=== PATIENT | female | born 1960 | race Caucasian/White ===

== ENCOUNTER 2020-02-13 02:10 | Inpatient (IN) | payer OTHER ==
[2020-02-13] MEDS ORDERED: morphine CARPU-JECT 2 MG/1 ML DISP.SYRIN IVPUSH ONE (02:13)
[2020-02-13] MEDS ORDERED: FAMOTIDINE 20 MG/50 ML IVPB 20 MG/50 ML MG IVPB ONE ×2 (02:13→02:22)
[2020-02-13] MEDS ORDERED: ONDANSETRON 4 MG/2 ML VIAL IVPUSH ONE ×2 (02:13→04:01)
[2020-02-13] MEDS ORDERED: SODIUM CHLORIDE 0.9% 500 ML INFUS.BAG IV ONE (02:18)
--- NOTE | 2020-02-13 02:18 | PDOC ---
Attending Attestation - Resident Resident Name: Anthony Theodore - ED Attending Attestation I have performed the following: I have examined & evaluated the patient, The case was reviewed & discussed with the resident, I agree w/resident's findings & plan - HPI HPI: 02/13/20 02:15 Pt comes with epigastric pain. She states that she had a normal BM and normal food intake today. Ate choizo and pork and ghreasy food. No PSHx other than c-sections, and no Hx of GB disease and no fam hx of GB disease. SHe is not obese. No PMHX Pt has no HTN, no DM, no high cholesterol. She is from [place] and speaks mozambican and she works in a [employer] factory. No ETOH and no drugs - Physicial Exam PE: 02/13/20 02:17 Normal exam Epigas tric pain; no rebound, no guarding no fever no rash normal HEENT heart and lungs normal vitals normal - Medical Decision Making 02/13/20 02:18 Pt will get labs, ekg, imaging studies 02/13/20 02:19 113 systolic right arm 121 systolic left arm 02/13/20 03:42 Pt has pancreatitis; lipase is 17,000+ She will get a CT scan of her abdomen to visualize the pancreas. 02/13/20 05:11 Patient Name: LYLA MENDEZ THIS IS A PRELIMINARY REPORT FROM [facility] DATE OF SERVICE: 2020-02-13 04:35:59 IMAGES: [id number] EXAM: ABDOMEN CT WITH CONTRAST* HISTORY: Pancreatitis COMPARISON: None. FINDINGS: Lung bases are clear. The visualized cardiac chambers are normal size and configuration. The gallbladder is distended and edematous consistent with acute cholecystitis. There is mild central biliary duct dilation. Mild peripancreatic edema consistent with acute pancreatitis. No secondary complications identified. Normal spleen, adrenal glands and kidneys. The stomach and abdominal small and large bowel are normal. There is no aortic aneurysm. There is no significant retroperitoneal lymphadenopathy. The appendix is normal. IMPRESSION: Mild acute pancreatitis without secondary complications. Acute cholecystitis with mild central biliary duct dilation. 02/13/20 05:11 Pt will be admitted Discharge - Discharge Information Problems reviewed: Yes Clinical Impression/Diagnosis: Cholecystitis Abdominal pain Qualifiers: Abdominal location: epigastric Qualified Code(s): R10.13 - Epigastric pain Pancreatitis Qualifiers: Chronicity: acute Pancreatitis type: unspecified pancreatitis type Acute pancreatitis complication: unspecified Qualified Code(s): K85.90 - Acute pancreatitis without necrosis or infection, unspecified Condition: Guarded - Follow up/Referral - Patient Discharge Instructions - Post Discharge Activity
[2020-02-13] MEDS ORDERED: MORPHINE SULFATE 2 MG/ML VIAL ONE ×4 (02:21→18:49)
[2020-02-13 02:25] LABS: BASO % 0.7 % (0-2.0); EOS % 1.6 % (0-4.5); HEMATOCRIT 36.1 % (32.4-45.2); HEMOGLOBIN 12.2 GM/dL (10.7-15.3); LYMPH % 61.1 % (8-40); MCH 30.5 pg (25.7-33.7); MCHC 33.7 g/dl (32.0-36.0); MEAN CELL VOLUME 90.5 fl (80-96); MEAN PLT VOLUME 9.3 fl (7.5-11.1); MONO % 4.5 % (3.8-10.2); NEUT % 32.1 % (42.8-82.8); PLATELET COUNT 252 K/MM3 (134-434); RBC 3.99 M/mm3 (3.60-5.2); RDW 13.1 % (11.6-15.6)
--- NOTE | 2020-02-13 02:34 | PDOC ---
History of Present Illness - General Chief Complaint: Pain Stated Complaint: DIFFICULTY BREATHING,ABDOMINAL PAIN Time Seen by Provider: 02/13/20 02:15 History Source: Patient Exam Limitations: No Limitations - History of Present Illness Initial Comments: 02/13/20 02:31 HPI: 60yo F PMH asthma, presenting with epigastric pain with nausea and vomiting for several hours after waking her from sleep. Patient endorses epigastric pain radiating to the back with associated nausea and 2x NBNB emesis. Patient doesn't drink much water and feels weak from the pain. Denies fevers / chills / chest pain, SOB / diarrhea. Has had pain like this previously but less intense. No aggravating or alleviating factors identified. No known cardiac history. Reported respiratory distress by EMS, patient sating 100% on room air on arrival. Appears sleepy but easily rousable to voice. All: NKDA Past History - Travel History Traveled outside of the country in the last 30 days: No Close contact w/someone who was outside of country & ill: No - Medical History Allergies/Adverse Reactions: Allergies Allergy/AdvReac Type Severity Reaction Status Date / Time No Known Allergies Allergy Verified 02/13/20 02:13 - Psycho-Social/Smoking History Smoking History: Never smoked Information on smoking cessation initiated: No - Substance Abuse Hx (Audit-C & DAST Scrn) How often the patient has a drink containing alcohol: Never Score: In Men: 4 or > Positive; In Women: 3 or > Positive: 0 Screen Result (Pos requires Nsg. Audit-10AR): Negative In the last yr the pt used illegal drug/Rx for NonMed reason: No Score: Yes response is considered Positive: 0 Screen Result (Positive result requires Nsg. DAST-10): Negative Review of Systems - Review of Systems Able to Perform ROS?: Yes Is the patient limited Spanish proficient: No Constitutional: No: Chills, Diaphoresis, Fever HEENTM: No: Nose Pain, Nose Congestion, Throat Pain Respiratory: No: Cough, Shortness of Breath, Wheezing Cardiac (ROS): No: Chest Pain, Edema, Irregular Heart Rate, Lightheadedness, Palpitations, Syncope, Chest Tightness ABD/GI: Yes: Nausea, Poor Fluid Intake, Vomiting. No: Abdominal Distended, Blood Streaked Bowels, Constipated, Diarrhea, Poor Appetite, Abdominal cramping, Tarry Stools : No: Burning, Dysuria, Frequency Musculoskeletal: No: Muscle Pain, Muscle Weakness Integumentary: No: Bruising, Pruritus, Rash Neurological: No: Headache, Numbness, Tingling, Weakness Endocrine: No: Increased Thirst, Increased Urine Hematologic/Lymphatic: No: Anemia, Blood Clots, Easy Bleeding All Other Systems: Reviewed and Negative *Physical Exam - Vital Signs Last Vital Signs Temp Pulse Resp BP Pulse Ox 98.6 F 54 L 20 113/98 100 02/13/20 02:11 02/13/20 02:11 02/13/20 02:11 02/13/20 02:11 02/13/20 02:11 - Physical Exam 02/13/20 03:02 Vitals reviewed, notable for bradycardia to the 50s GEN: Well appearing, appears stated age, NAD, comfortable. AAOx3, intermittently closing eyes and sleeping. HEENT: NCAT, EOMI, PERRL. Sclera anicteric, non-injected. No facial asymmetry. Moist mucous membranes. Normal voice. Trachea midline. CV: RRR, S1/S2, no murmurs / rubs / gallops appreciated. LUNG: CTABL, normal work of breathing. No wheezes, rales, rhonchi. No cough. Speaking full sentences. GI: Soft, NTND, +BS, no guarding, no rebound. No masses. EXTREMITIES: 2+ distal pulses. No clubbing / cyanosis / edema. No gross deformity in any extremity. SKIN: Warm, dry, no rashes appreciated, non-jaundiced. PSYCH: Normal mood and affect. Cooperative and appropriate. NEURO: CN grossly intact. Moving all extremities well. Normal strength and sensation grossly. ED Treatment Course - LABORATORY CBC & Chemistry Diagram: 02/13/20 02:13 02/13/20 02:13 - ADDITIONAL ORDERS Additional order review: 02/13/20 02:13 RBC 3.99 MCV 90.5 MCHC 33.7 RDW 13.1 MPV 9.3 Neutrophils % 32.1 L Lymphocytes % 61.1 H Monocytes % 4.5 Eosinophils % 1.6 Basophils % 0.7 - Medications Given in the ED: ED Medications Discontinued Medications Generic Name Dose Route Start Last Admin Trade Name Freq PRN Reason Stop Dose Admin Morphine Sulfate 2 mg 02/13/20 02:13 02/13/20 02:26 Morphine Injection - IVPUSH 02/13/20 02:14 2 mg ONCE ONE Administration Ondansetron HCl 4 mg 02/13/20 02:13 02/13/20 02:27 Zofran Injection IVPUSH 02/13/20 02:14 4 mg ONCE ONE Administration Sodium Chloride 1,000 ml 02/13/20 02:18 02/13/20 02:27 Normal Saline - IV 02/13/20 02:19 1,000 ml ONCE ONE Administration Medical Decision Making - Medical Decision Making 02/13/20 03:07 60 yo F PMH asthma, presenting with epigastric pain with nausea and vomiting for 1 day. Exam notable for stable vitals with sinus bradycardia, no focal neurologic deficits. DDX: R/o ACS, GERD, pancreatitis, colitis, gastritis, less likely cholelithiasis. - CBC, CMP, Cardiac profile, Mg, Lipase - Pepcid, Zofran, NS, Morphine - EKG, CXR EKG notable for sinus bradycardia without concerning morphologies. 02/13/20 03:43 Elevated lipase, combined with description of front to back pain consistent with diagnosis of pancreatitis - LR ordered - Patient made NPO - CTAP ordered - POCUS demonstrated cholelithiasis with gallbladder distention Dispo: Admit 02/13/20 05:53 Mild acute pancreatitis, acute cholecystitis with CBD dilatation. Discharge - Discharge Information Problems reviewed: Yes Clinical Impression/Diagnosis: Cholecystitis Abdominal pain Qualifiers: Abdominal location: epigastric Qualified Code(s): R10.13 - Epigastric pain Pancreatitis Qualifiers: Chronicity: acute Pancreatitis type: unspecified pancreatitis type Acute pancr eatitis complication: unspecified Qualified Code(s): K85.90 - Acute pancreatitis without necrosis or infection, unspecified Condition: Guarded - Admission Yes - Follow up/Referral - Patient Discharge Instructions - Post Discharge Activity
[2020-02-13 03:22] LABS: ALBUMIN 3.5 g/dl (3.4-5.0); ALK PHOS 80 U/L (45-117); ANION GAP 11 MMOL/L (8-16); BILIRUBIN,TOTAL 0.4 mg/dL (0.2-1); CALCIUM 9.1 mg/dL (8.5-10.1); CHLORIDE 106 mmol/L (98-107); CO2 25 mmol/L (21-32); CREATININE 1.1 mg/dL (0.55-1.3); GLUCOSE,RANDOM 146 mg/dL (74-106); POTASSIUM 3.5 mmol/L (3.5-5.1); SGOT/AST 80 U/L (15-37); SGPT/ALT 54 U/L (13-61); SODIUM 142 mmol/L (136-145); TOT PROT 6.8 g/dl (6.4-8.2)
[2020-02-13 03:40] LABS: LIPASE 17757 U/L (73-393)
[2020-02-13] MEDS ORDERED: LACTATED RINGERS SOLUTION 1,000 ML/1,000 ML INFUS.BAG IV SCH (03:45)
--- NOTE | 2020-02-13 05:33 | PN ---
Teaching Attending Note Name of Resident: Alfa Teague ATTENDING PHYSICIAN STATEMENT I saw and evaluated the patient. I reviewed the resident's note and discussed the case with the resident. I agree with the resident's findings and plan as documented. SUBJECTIVE: Patient is a 60 year old woman with a PMH of Asthma, CVA (2013) and TIAs who pr esents with epigastric pain associated with nausea and vomiting for several hours after waking from sleep. Epigastric pain radiates to the back with associated nausea and two episodes of NBNB emesis. Patient doesn't drink much water and feels weak from the pain. Has had pain like this previously but less intense. No aggravating or alleviating factors identified. No known cardiac history. Reported respiratory distress by EMS, patient sating 100% on room air on arrival. Patient denies chest pain, shortness of breath, headache, palpitations, dizziness, fever, chills, diarrhea, constipation, dysuria, frequency, urgency, melena, hematochezia or hematuria. Denies alcohol, tobacco or illicit drug use. No sick contacts or recent travels. Has family history of DM in her father. OBJECTIVE: Alert Vital Signs Period Temp Pulse Resp BP Sys/Villanueva Pulse Ox Last 24 Hr 98.6 F 54-58 18-20 113-134/72-98 100-100 HEENT: No Jaundice, eye redness or discharge, PERRLA, EOMI. Normocephalic, atraumatic. External ears are normal and hearing is grossly intact. No nasal discharge. Neck: Supple, nontender. No palpable adenopathy or thyromegaly. No JVD Chest: Good effort. Clear to auscultation and percussion. Heart: Regular. No S3, rub or murmur Abdomen: Not distended, soft, epigastric tenderness and no HSM. No rebound or guarding. Normal bowel sounds. Ext: Peripheral pulses intact. No leg edema. Skin: Warm and dry. No petechiae, rash or ecchymosis. Neuro: Alert. Oriented x3. CN 2-12 grossly intact. Sensation grossly intact in all four extremities and DTR are symmetric. Psych: Appropriate mood and affect. Good insight. Current Medications Generic Name Dose Route Start Last Admin Trade Name Freq PRN Reason Stop Dose Admin Lactated Ringer's 1,000 ml in 1,000 mls @ 125 mls/hr 02/13/20 03:45 02/13/20 03:46 Lactated Ringers Solution IV 125 mls/hr ASDIR BOLA Administration Abnormal Lab Results 02/13/20 02/13/20 02:13 02:13 Neutrophils % 32.1 L Neutrophils % (Manual) 33.0 L Lymphocytes % 61.1 H Lymphocytes % (Manual) 62.1 H Monocytes % (Manual) 3 L Nucleated RBC % 2 H BUN 24.0 H Random Glucose 146 H AST 80 H Lipase 26057 H Current Medications Generic Name Dose Route Start Last Admin Trade Name Freq PRN Reason Stop Dose Admin Lactated Ringer's 1,000 ml in 1,000 mls @ 200 mls/hr 02/13/20 06:45 Lactated Ringers Solution IV ASDIR BOLA Ceftriaxone Sodium 1,000 mg/ 50 mls @ 100 mls/hr 02/13/20 06:39 Dextrose IVPB 02/13/20 07:08 ONCE ONE Metronidazole 500 mg in 100 mls @ 100 mls/hr 02/13/20 06:40 Flagyl 500mg Premixed Ivpb - IVPB 02/13/20 07:39 ONCE ONE Insulin Aspart 0 vial 02/13/20 07:00 Novolog Vial Sliding Scale - SQ ACHS BOLA Protocol Morphine Sulfate 2 mg 02/13/20 06:26 Morphine Injection - IVPUSH Q4H PRN PAIN LEVEL 7 - 10 Pantoprazole Sodium 40 mg 02/13/20 10:00 Protonix - PO DAILY BOLA Prochlorperazine Edisylate 10 mg 02/13/20 06:37 Compazine Injection - IVPB Q4H PRN NAUSEA AND/OR VOMITING ASSESSMENT AND PLAN: 1. Pancreatitis/Cholecystitis - CT scan of abdomen with IV contrast shows mild acute pancreatitis without secondary complications and acute cholecystitis with mild central biliary duct dilation. Ultrasound shows cholelithiasis and gall bladder distension. Viral testing for COVID-19 ordered and patient placed on airborne, droplet and contact isolation. ER staff prescribed IV Morphine, LR, Pepcid, Zofran and IV NS for the patient. EKG shows sinus bradycardia at 52/minute and QTc [address]-T wave changes. Initial troponin is negative. Will get lipid profile, HbA1c and MRCP. Will keep patient NPO, implement insulin sliding scale and treat patient with IV LR at 200 ml/hour, IV Morphine, IV Compazine PRN, IV Rocephin and Flagyl and consult GI and Surgery. Will continue comprehensive care for all of patients comorbid conditions including Duoneb PRN for Asthma. 2. DVT prophylaxis - SCD. 3. Advance directives - Full code
[2020-02-13] MEDS ORDERED: MORPHINE SULFATE 2 MG/ML VIAL IVPUSH PRN (06:26)
[2020-02-13] MEDS ORDERED: IBUPROFEN 400 MG TABLET (FP) PO PRN (06:26)
--- NOTE | 2020-02-13 06:26 | HP ---
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 Pt reports symptoms were spontaneous, with no remitting or aggravating factors. She went to sleep after eating a heavy meat based diet. Patient endorses epigastric pain radiating to the back with associated nausea and 2x NBNB emesis. Patient doesn't drink much water and feels weak from the pain. Has been having pain like this previously but less intense. Denies fevers / chills / chest pain, SOB / diarrhea. ER course was notable for: (1) CT a/p: prelim- acute pancreatitis and acute cholecystitis w/ mild ductal dilation (2) bedside US demonstrating similar findings to cat scan (3) Recent Travel: denies PAST MEDICAL HISTORY: asmtha, cva PAST SURGICAL HISTORY: none FHx dad- dm Social History: Smoking: denies Alcohol: denies Drugs: denies Allergies No Known Allergies Allergy (Verified 02/13/20 02:13) HOME MEDICATIONS: REVIEW OF SYSTEMS Denies fevers / chills / chest pain, SOB / diarrhea, melena, hematemesis, numbness or tingling. PHYSICAL EXAMINATION Vital Signs - 24 hr 02/13/20 02/13/20 02:11 03:45 Temperature 98.6 F Pulse Rate 54 L Pulse Rate [ 58 L Apical] Respiratory 20 18 Rate Blood Pressure 113/98 Blood Pressure 134/72 [Left Arm] O2 Sat by Pulse 100 100 Oximetry (%) GENERAL: Awake, alert, and fully oriented, in no acute distress. EYES: Pupils equal, round and reactive to light, extraocular movements intact, sclera anicteric, No lid lag. EARS, NOSE, THROAT: Moist mucous membranes. LUNGS: Breath sounds equal, clear to auscultation bilaterally. No wheezes, and no crackles. HEART: Regular rate and rhythm, normal S1 and S2 without murmur, rub or gallop. ABDOMEN: Soft, tender epigastric and RUQ, not distended, normoactive bowel sound s, +guarding, +rebound, che+ MUSCULOSKELETAL: Normal range of motion at all joints. No bony deformities or tenderness. Midback tenderness LOWER EXTREMITIES: 2+ pulses, warm, well-perfused. No calf tenderness. No peripheral edema. SKIN: Warm, dry, normal turgor, no rashes or lesions noted, normal capillary refill. Laboratory Results - last 24 hr 02/13/20 02/13/20 02:13 02:13 WBC 8.0 RBC 3.99 Hgb 12.2 Hct 36.1 MCV 90.5 MCH 30.5 MCHC 33.7 RDW 13.1 Plt Count 252 MPV 9.3 Absolute Neuts (auto) 2.6 Neutrophils % 32.1 L Neutrophils % (Manual) 33.0 L Band Neutrophils % 0.0 Lymphocytes % 61.1 H Lymphocytes % (Manual) 62.1 H Monocytes % 4.5 Monocytes % (Manual) 3 L Eosinophils % 1.6 Eosinophils % (Manual) 1.0 Basophils % 0.7 Basophils % (Manual) 0.0 Myelocytes % (Man) 1 Promyelocytes % (Man) 0 Blast Cells % (Manual) 0 Nucleated RBC % 2 H Metamyelocytes 0 Sodium 142 Potassium 3.5 Chloride 106 Carbon Dioxide 25 Anion Gap 11 BUN 24.0 H Creatinine 1.1 Est GFR (CKD-EPI)AfAm 63.20 Est GFR (CKD-EPI)NonAf 54.53 Random Glucose 146 H Calcium 9.1 Magnesium 2.0 Total Bilirubin 0.4 AST 80 H ALT 54 Alkaline Phosphatase 80 Creatine Kinase 59 Troponin I < 0.02 Total Protein 6.8 Albumin 3.5 Lipase 69904 H ASSESSMENT/PLAN: 60 yo F PMH asthma, CVA in 2003 w/ right sided residual deficit s/p physical therapy/rehab recovery, multiple TIAs- most recent in 2009, presenting with epigastric pain radiating to the back with nausea and vomiting for several hours is admitted for Acute cholecystitis and acute pancreatitis likely 2/2 to biliary stones #Acute Pancreatitis + Acute Cholecystitis likely 2/[address] a/p: prelim- acute pancreatitis and acute cholecystitis w/ mild ductal dilation bedside US also confirms similar findings lipase in 17,000 Pt with abdominal pain and tenderness but stable Will cont to hydrate with LR at 200 (monitor for LR and rocephin interaction for calcium deposition ) Maintain NPO Started on one dose Flagyll and Rocephin protonix, compazine and morphine for nausea and pain Will order UA, HbA1c Lipid Profile consulted GI for possible MRCP if cbd dilated consulted surgery for possible jarod #asthma newly diagnosed not on meds #CVA hx ASA only no meds #DVT ppx cont scds FEN monitor lytes NPO IVF at 200 Dispo: f/u GI and surgery, cont NPO and LR Visit type - Emergency Visit Emergency Visit: Yes ED Registration Date: 02/13/20 Care time: The patient presented to the Emergency Department on the above date and was hospitalized for further evaluation of their emergent condition. - New Patient This patient is new to me today: Yes Date on this admission: 02/25/20 - Critical Care Critical Care patient: No ATTENDING PHYSICIAN STATEMENT I saw and evaluated the patient. I reviewed the resident's note and discussed the case with the resident. I agree with the resident's findings and plan as documented. SUBJECTIVE: OBJECTIVE: ASSESSMENT AND PLAN:
[2020-02-13] MEDS ORDERED: PROCHLORPERAZINE INJECTION 10 MG/2 ML VIAL IVPB PRN (06:37)
[2020-02-13] MEDS ORDERED: CEFTRIAXONE 1 GM in DEXTROSE 5%-WATER - 50 ML IVPB ONE (06:39)
[2020-02-13] MEDS: LACTATED RINGERS SOLUTION 1,000 ML/1,000 ML INFUS.BAG IV SCH (06:54)
[2020-02-13] MEDS ORDERED: INSULIN SLIDING SCALE (NOVOLOG) 1 VIAL SQ SCH ×2 (07:00→11:00)
[2020-02-13 08:12] LABS: BASO % 0.3 % (0-2.0); EOS % 0.1 % (0-4.5); HEMATOCRIT 35.1 % (32.4-45.2); HEMOGLOBIN 11.6 GM/dL (10.7-15.3); LYMPH % 15.5 % (8-40); MCH 30.1 pg (25.7-33.7); MCHC 33.1 g/dl (32.0-36.0); MEAN CELL VOLUME 90.8 fl (80-96); NEUT % 80.1 % (42.8-82.8); PLATELET COUNT 242 K/MM3 (134-434); RBC 3.86 M/mm3 (3.60-5.2); RDW 13.2 % (11.6-15.6); WHITE BLOOD COUNT 9.5 K/mm3 (4.0-10.0)
[2020-02-13] MEDS ORDERED: cefTRIAXone SODIUM 1 GM VIAL ONE (08:20)
[2020-02-13 08:40] LABS: ALBUMIN 3.3 g/dl (3.4-5.0); BILIRUBIN,TOTAL 0.6 mg/dL (0.2-1); BLOOD UREA NITROGEN 15.9 mg/dL (7-18); CALCIUM 8.4 mg/dL (8.5-10.1); CREATININE 0.8 mg/dL (0.55-1.3); PHOSPHOROUS 3.7 mg/dL (2.5-4.9); POTASSIUM 3.9 mmol/L (3.5-5.1); TOT PROT 6.1 g/dl (6.4-8.2)
[2020-02-13 09:36] LABS: PH,URINE >= 9.0 (5.0-8.0); URINE APPEARANCE CLEAR; URINE BILIRUBIN NEGATIVE (NEGATIVE); URINE COLOR YELLOW; URINE GLUCOSE (UA) NEGATIVE (NEGATIVE); URINE KETONE NEGATIVE (NEGATIVE); URINE LEUK ESTERASE NEGATIVE (NEGATIVE); URINE NITRITE NEGATIVE (NEGATIVE); URINE PROTEIN NEGATIVE (NEGATIVE)
[2020-02-13] MEDS ORDERED: PANTOPRAZOLE 40 MG TABLET PO SCH (10:00)
[2020-02-13] MEDS: INSULIN SLIDING SCALE (NOVOLOG) 1 VIAL SQ SCH ×3 (11:08→22:22)
[2020-02-13] MEDS: MORPHINE SULFATE 2 MG/ML VIAL IVPUSH PRN ×2 (11:28→18:57)
--- NOTE | 2020-02-13 16:05 | PN ---
Physical Exam: 60 yo F PMH asthma, TIAs presenting with epigastric pain radiating to the back with nausea and vomiting for several hours SUBJECTIVE: Patient seen and examined in ED, lying in bed in distress due to pain OBJECTIVE: Vital Signs Period Temp Pulse Resp BP Sys/Villanueva Pulse Ox Last 24 Hr 98.6 F 54-63 18-20 113-134/72-98 99-100 GENERAL: The patient is awake, alert, and fully oriented, in no acute distress. HEAD: Normal with no signs of trauma. EYES: PERRL, extraocular movements intact, sclera anicteric, conjunctiva clear. No ptosis. ENT: Ears normal, nares patent, oropharynx clear without exudates, moist mucous membranes. NECK: Trachea midline, full range of motion, supple. LUNGS: Breath sounds equal, clear to auscultation bilaterally, no wheezes, no crackles, no accessory muscle use. HEART: Regular rate and rhythm, S1, S2 without murmur, rub or gallop. ABDOMEN: Soft, epigastric tenderness w/o rebound, nondistended, normoactive bowel sounds, no guarding, no rebound, no hepatosplenomegaly, no masses. EXTREMITIES: 2+ pulses, warm, well-perfused, no edema. NEUROLOGICAL: Cranial nerves II through XII grossly intact. Normal speech, gait not observed. PSYCH: Normal mood, normal affect. SKIN: Warm, dry, normal turgor, no rashes or lesions noted Laboratory Results - last 24 hr 02/13/20 02/13/20 02/13/20 02:13 02:13 07:30 WBC 8.0 RBC 3.99 Hgb 12.2 Hct 36.1 MCV 90.5 MCH 30.5 MCHC 33.7 RDW 13.1 Plt Count 252 MPV 9.3 Absolute Neuts (auto) 2.6 Neutrophils % 32.1 L Neutrophils % (Manual) 33.0 L Band Neutrophils % 0.0 Lymphocytes % 61.1 H Lymphocytes % (Manual) 62.1 H Monocytes % 4.5 Monocytes % (Manual) 3 L Eosinophils % 1.6 Eosinophils % (Manual) 1.0 Basophils % 0.7 Basophils % (Manual) 0.0 Myelocytes % (Man) 1 Promyelocytes % (Man) 0 Blast Cells % (Manual) 0 Nucleated RBC % 2 H Metamyelocytes 0 Sodium 142 Potassium 3.5 Chloride 106 Carbon Dioxide 25 Anion Gap 11 BUN 24.0 H Creatinine 1.1 Est GFR (CKD-EPI)AfAm 63.20 Est GFR (CKD-EPI)NonAf 54.53 POC Glucometer Random Glucose 146 H Hemoglobin A1c % Calcium 9.1 Phosphorus Magnesium 2.0 Total Bilirubin 0.4 AST 80 H ALT 54 Alkaline Phosphatase 80 Creatine Kinase 59 Troponin I < 0.02 Total Protein 6.8 Albumin 3.5 Triglycerides Cholesterol Total LDL Cholesterol HDL Cholesterol Lipase 13392 H Urine Color Yellow Urine Appearance Clear Urine pH >= 9.0 H Ur Specific [place] 1.033 Urine Protein Negative Urine Glucose (UA) Negative Urine Ketones Negative Urine Blood Negative Urine Nitrite Negative Urine Bilirubin Negative Urine Urobilinogen 1.0 Ur Leukocyte Esterase Negative 02/13/20 02/13/20 02/13/20 07:52 07:52 07:52 WBC 9.5 RBC 3.86 Hgb 11.6 Hct 35.1 MCV 90.8 MCH 30.1 MCHC 33.1 RDW 13.2 Plt Count 242 MPV 9.0 Absolute Neuts (auto) 7.6 Neutrophils % 80.1 D Neutrophils % (Manual) Band Neutrophils % Lymphocytes % 15.5 D Lymphocytes % (Manual) Monocytes % 4.0 Monocytes % (Manual) Eosinophils % 0.1 D Eosinophils % (Manual) Basophils % 0.3 Basophils % (Manual) Myelocytes % (Man) Promyelocytes % (Man) Blast Cells % (Manual) Nucleated RBC % 0 Metamyelocytes Sodium 142 Potassium 3.9 Chloride 108 H Carbon Dioxide 29 Anion Gap 5 L BUN 15.9 Creatinine 0.8 Est GFR (CKD-EPI)AfAm 92.87 Est GFR (CKD-EPI)NonAf 80.13 POC Glucometer Random Glucose 112 H Hemoglobin A1c % 5.8 Calcium 8.4 L Phosphorus 3.7 Magnesium 2.0 Total Bilirubin 0.6 AST 286 H ALT 217 H Alkaline Phosphatase 80 Creatine Kinase Troponin I Total Protein 6.1 L Albumin 3.3 L Triglycerides 63 Cholesterol 213 H Total LDL Cholesterol 134 H HDL Cholesterol 53 Lipase Urine Color Urine Appearance Urine pH Ur Specific [place] Urine Protein Urine Glucose (UA) Urine Ketones Urine Blood Urine Nitrite Urine Bilirubin Urine Urobilinogen Ur Leukocyte Esterase 02/13/20 07:54 WBC RBC Hgb Hct MCV MCH MCHC RDW Plt Count MPV Absolute Neuts (auto) Neutrophils % Neutrophils % (Manual) Band Neutrophils % Lymphocytes % Lymphocytes % (Manual) Monocytes % Monocytes % (Manual) Eosinophils % Eosinophils % (Manual) Basophils % Basophils % (Manual) Myelocytes % (Man) Promyelocytes % (Man) Blast Cells % (Manual) Nucleated RBC % Metamyelocytes Sodium Potassium Chloride Carbon Dioxide Anion Gap BUN Creatinine Est GFR (CKD-EPI)AfAm Est GFR (CKD-EPI)NonAf POC Glucometer 106 Random Glucose Hemoglobin A1c % Calcium Phosphorus Magnesium Total Bilirubin AST ALT Alkaline Phosphatase Creatine Kinase Troponin I Total Protein Albumin Triglycerides Cholesterol Total LDL Cholesterol HDL Cholesterol Lipase Urine Color Urine Appearance Urine pH Ur Specific [place] Urine Protein Urine Glucose (UA) Urine Ketones Urine Blood Urine Nitrite Urine Bilirubin Urine Urobilinogen Ur Leukocyte Esterase Active Medications Generic Name Dose Route Start Last Admin Trade Name Freq PRN Reason Stop Dose Admin Lactated Ringer's 1,000 ml in 1,000 mls @ 200 mls/hr 02/13/20 06:45 02/13/20 06:54 Lactated Ringers Solution IV 200 mls/hr ASDIR BOLA Administration Insulin Aspart 1 vial 02/13/20 07:43 02/13/20 11:08 Novolog Vial Sliding Scale - SQ Not Given ACHS BOLA Protocol Morphine Sulfate 2 mg 02/13/20 11:20 02/13/20 11:28 Morphine Sulfate IVPUSH 2 mg Q6H PRN Administration PAIN LEVEL 6-10 Pantoprazole Sodium 40 mg 02/13/20 10:00 02/13/20 10:12 Protonix - PO Not Given DAILY BOLA Prochlorperazine Edisylate 10 mg 02/13/20 06:37 Compazine Injection - IVPB Q4H PRN NAUSEA AND/OR VOMITING ASSESSMENT/PLAN: # acute pancreatitis - caused by calculous cholecystitis - NPO, IV fluids, and IV ABx, pain management - surgical consult requested - GI consult requested - CT and US finding noted Visit type - Emergency Visit Emergency Visit: Yes ED Registration Date: 02/13/20 Care time: The patient presented to the Emergency Department on the above date and was hospitalized for further evaluation of their emergent condition. - New Patient This patient is new to me today: Yes Date on this admission: 02/13/20 - Critical Care Critical Care patient: No - Discharge Referral Referred to [facility] No
--- NOTE | 2020-02-13 18:17 | CONSULT ---
- Consultation REQUESTING PROVIDER: CONSULT REQUEST: We have been asked to surgically evaluate this patient for pancreatitis PCP:Masood Gomez MD HISTORY OF PRESENT ILLNESS: ROSS who is a 60 y/o female; I spoke with her and examined her in US and spoke with her son; she presented with epigastric pain radiating to the back with nausea and vomiting for several hours that began while sleeping and has since worsened, without relief. Pt reports symptoms were spontaneous, with no remitting or aggravating factors. She went to sleep after eating a heavy meat based diet. Patient states she has epigastric pain radiating to the back with associated nausea and vomiting. She may have had this in the past; it was never investigated; she has no other GI//[employer] c/o's. PMHx: astma/CVA/#TIA's PSHx: none Home Medications Medication Instructions Recorded Aspirin [Adult Aspirin Regimen] 81 mg PO PRN PRN 02/13/20 Allergies Allergy/AdvReac Type Severity Reaction Status Date / Time No Known Allergies Allergy Verified 02/13/20 02:13 REVIEW OF SYSTEMS: CONSTITUTIONAL: Absent: fever, chills, diaphoresis, generalized weakness, malaise, loss of appetite, weight change CARDIOVASCULAR: Absent: chest pain, syncope, palpitations, irregular heart rate, lightheadedness, peripheral edema RESPIRATORY: Absent: cough, shortness of breath, dyspnea with exertion, wheezing, stridor, hemoptysis GASTROINTESTINAL: Absent: abdominal pain, abdominal distension, nausea, vomiting, diarrhea, constipation, melena, hematochezia GENITOURINARY: Absent: dysuria, frequency, urgency, hesitancy, hematuria, flank pain, genital pain MUSCULOSKELETAL: Absent: myalgia, arthralgia, joint swelling, back pain, neck pain SKIN: Absent: rash, itching, pallor HEMATOLOGIC/IMMUNOLOGIC: Absent: easy bleeding, easy bruising, lymphadenopathy NEUROLOGIC: Absent: headache, focal weakness, paresthesias, dizziness, unsteady gait, seizure, mental status changes, bladder or bowel incontinence PSYCHIATRIC: Absent: anxiety, depression, suicidal or homicidal ideation, hallucinations. PHYSICAL EXAM: GENERAL: Awake, alert, and fully oriented, in no acute distress. HEAD: Normal with no signs of trauma. EYES: PERRL, sclera anicteric, conjunctiva clear. NECK: Normal ROM, supple without lymphadenopathy, JVD, or masses. LUNGS: Clear to auscultation bilat anteriorly. No wheezes, and no crackles. No accessory muscle use. HEART: Regular rate and rhythm. No murmurs ABDOMEN: Soft, nontender, not distended, normoactive bowel sounds, no guarding, no rebound, no masses. No organomegaly. MUSCULOSKELETAL: Normal ROM at all joints. No bony deformities or tenderness. No CVA tenderness. UPPER EXTREMITIES: 2+ pulses, warm, well-perfused. No cyanosis. Cap refill <2 seconds. No peripheral edema. LOWER EXTREMITIES: 2+ pulses, warm, well-perfused. No calf tenderness. No peripheral edema. NEUROLOGICAL: Normal speech, gait not observed. PSYCH: Cooperative. Good eye contact. Appropriate mood and affect. SKIN: Warm, dry, normal turgor, no rashes or lesions noted. Vital Signs Temperature 98.0 F 02/13/20 17:00 Pulse Rate 72 02/13/20 17:00 Respiratory Rate 18 02/13/20 06:54 Blood Pressure 125/67 02/13/20 17:00 O2 Sat by Pulse Oximetry (%) 100 02/13/20 17:00 Lab Results WBC 9.5 K/mm3 (4.0-10.0) 02/13/20 07:52 RBC 3.86 M/mm3 (3.60-5.2) 02/13/20 07:52 Hgb 11.6 GM/dL (10.7-15.3) 02/13/20 07:52 Hct 35.1 % (32.4-45.2) 02/13/20 07:52 MCV 90.8 fl (80-96) 02/13/20 07:52 MCHC 33.1 g/dl (32.0-36.0) 02/13/20 07:52 RDW 13.2 % (11.6-15.6) 02/13/20 07:52 Plt Count 242 K/MM3 (134-434) 02/13/20 07:52 Sodium 142 mmol/L (136-145) 02/13/20 07:52 Potassium 3.9 mmol/L (3.5-5.1) 02/13/20 07:52 Chloride 108 mmol/L (98-107) H 02/13/20 07:52 Carbon Dioxide 29 mmol/L (21-32) 02/13/20 07:52 Anion Gap 5 MMOL/L (8-16) L 02/13/20 07:52 BUN 15.9 mg/dL (7-18) 02/13/20 07:52 Creatinine 0.8 mg/dL (0.55-1.3) 02/13/20 07:52 Random Glucose 112 mg/dL (74-106) H 02/13/20 07:52 Calcium 8.4 mg/dL (8.5-10.1) L 02/13/20 07:52 Imaging to date reviewed including US/CT IMP: gallstone pancreatitis/cholelithiasis PLAN: NPO/IVF/MRCP/GI evaluation; once w/u is complete and pancreatitis has clinically resolve will nee lap jarod possible open. Adam Figueroa MD FACS
[2020-02-14] MEDS ORDERED: PROCHLORPERAZINE INJECTION 10 MG/2 ML VIAL ONE (04:53)
[2020-02-14] MEDS ORDERED: MORPHINE SULFATE 2 MG/ML VIAL ONE (04:53)
[2020-02-14] MEDS: MORPHINE SULFATE 2 MG/ML VIAL IVPUSH PRN (04:59)
[2020-02-14] MEDS: LACTATED RINGERS SOLUTION 1,000 ML/1,000 ML INFUS.BAG IV SCH (06:39)
[2020-02-14 07:23] LABS: BASO % 0.6 % (0-2.0); EOS % 1.8 % (0-4.5); HEMATOCRIT 33.7 % (32.4-45.2); HEMOGLOBIN 11.1 GM/dL (10.7-15.3); INR 1.05 (0.83-1.09); MCHC 32.9 g/dl (32.0-36.0); MEAN CELL VOLUME 91.1 fl (80-96); MEAN PLT VOLUME 9.3 fl (7.5-11.1); MONO % 7.8 % (3.8-10.2); NEUT % 59.8 % (42.8-82.8); PLATELET COUNT 221 K/MM3 (134-434); PROTHROMBIN TIME (PATIENT) 12.4 SEC (9.7-13.0); RDW 13.2 % (11.6-15.6); WHITE BLOOD COUNT 5.9 K/mm3 (4.0-10.0)
[2020-02-14 07:48] LABS: ALBUMIN 3.1 g/dl (3.4-5.0); BILIRUBIN,TOTAL 1.2 mg/dL (0.2-1); BLOOD UREA NITROGEN 8.7 mg/dL (7-18); CALCIUM 8.5 mg/dL (8.5-10.1); CREATININE 0.7 mg/dL (0.55-1.3); POTASSIUM 3.4 mmol/L (3.5-5.1)
[2020-02-14 08:44] VITALS: BMI 23.3
[2020-02-14] MEDS: INSULIN SLIDING SCALE (NOVOLOG) 1 VIAL SQ SCH ×4 (08:51→21:13)
[2020-02-14] MEDS ORDERED: ACETAMINOPHEN 1000 MG/100 ML VIAL (NON FORMULARY) IVPB PRN (08:54)
--- NOTE | 2020-02-14 09:17 | EKG ---
Test Reason : Blood Pressure : / mmHG Vent. Rate : 052 BPM Atrial Rate : 052 BPM P-R Int : 186 ms QRS Dur : 108 ms QT Int : 504 ms P-R-T Axes : 063 073 074 degrees QTc Int : 468 ms SINUS BRADYCARDIA OTHERWISE NORMAL ECG NO PREVIOUS ECGS AVAILABLE Confirmed by Danny Lizama ([id number]) on 02/14/2020 9:17:12 AM Referred By: Confirmed By:Danny Lizama
[2020-02-14] MEDS ORDERED: PANTOPRAZOLE SODIUM 40 MG VIAL IVPUSH SCH (10:00)
[2020-02-14] MEDS: CEFTRIAXONE 1 GM in DEXTROSE 5%-WATER - 50 ML IVPB SCH (11:05)
[2020-02-14] MEDS: KCL 10 MEQ IVPB 10 MEQ/100 ML INFUS.BAG IVPB SCH ×2 (11:26→12:58)
[2020-02-14] MEDS ORDERED: LACTATED RINGERS SOLUTION 1,000 ML/1,000 ML INFUS.BAG IV SCH (14:46)
[2020-02-14] MEDS ORDERED: ALBUTEROL SO4 HFA INHALER IH PRN (14:48)
--- NOTE | 2020-02-14 14:52 | PN ---
Physical Exam: SUBJECTIVE: Patient seen and examined at bedside this morning. No acute events overnight. Patient reports significant improvement of abdominal pain, Denies fevers, chills, headache, dizziness, nausea, vomiting, chest pain, SOB, diarrhea, urinary symptoms. OBJECTIVE: Vital Signs Temperature 98.6 F 02/14/20 08:35 Pulse Rate 71 02/14/20 08:35 Respiratory Rate 20 02/14/20 08:35 Blood Pressure 114/53 L 02/14/20 08:35 O2 Sat by Pulse Oximetry (%) 97 02/14/20 08:44 GENERAL: The patient is awake, alert, and fully oriented, in no acute distress. HEAD: Normal with no signs of trauma. ENT: moist mucous membranes. NECK: full range of motion, supple. LUNGS: Breath sounds equal, clear to auscultation bilaterally HEART: Regular rate and rhythm, S1, S2 without murmur, rub or gallop. ABDOMEN: Soft, mild epigastric tenderness on deep palpation, nondistended, normoactive bowel sounds EXTREMITIES: 2+ pulses, warm, well-perfused, no edema. NEUROLOGICAL: Cranial nerves II through XII grossly intact. Normal speech PSYCH: Normal mood, normal affect. SKIN: Warm, dry, normal turgor Laboratory Results - last 24 hr 02/14/20 02/14/20 02/14/20 06:40 06:40 06:40 WBC 5.9 RBC 3.70 Hgb 11.1 Hct 33.7 MCV 91.1 MCH 30.0 MCHC 32.9 RDW 13.2 Plt Count 221 MPV 9.3 Absolute Neuts (auto) 3.6 Neutrophils % 59.8 D Lymphocytes % 30.0 D Monocytes % 7.8 D Eosinophils % 1.8 D Basophils % 0.6 Nucleated RBC % 0 PT with INR 12.40 INR 1.05 Sodium 141 Potassium 3.4 L Chloride 106 Carbon Dioxide 30 Anion Gap 5 L BUN 8.7 Creatinine 0.7 Est GFR (CKD-EPI)AfAm 109.15 Est GFR (CKD-EPI)NonAf 94.17 POC Glucometer Random Glucose 89 Calcium 8.5 Total Bilirubin 1.2 H AST 73 H ALT 141 H Alkaline Phosphatase 78 Total Protein 6.0 L Albumin 3.1 L Lipase 1728 H 02/14/20 11:52 WBC RBC Hgb Hct MCV MCH MCHC RDW Plt Count MPV Absolute Neuts (auto) Neutrophils % Lymphocytes % Monocytes % Eosinophils % Basophils % Nucleated RBC % PT with INR INR Sodium Potassium Chloride Carbon Dioxide Anion Gap BUN Creatinine Est GFR (CKD-EPI)AfAm Est GFR (CKD-EPI)NonAf POC Glucometer 83 Random Glucose Calcium Total Bilirubin AST ALT Alkaline Phosphatase Total Protein Albumin Lipase Active Medications Generic Name Dose Route Start Last Admin Trade Name Freq PRN Reason Stop Dose Admin Acetaminophen 1,000 mg 02/14/20 08:54 02/14/20 11:05 Ofirmev Injection - IVPB 02/15/20 08:54 1,000 mg Q6H PRN Administration PAIN LEVEL 6-10 Lactated Ringer's 1,000 ml in 1,000 mls @ 200 mls/hr 02/13/20 06:45 02/14/20 06:39 Lactated Ringers Solution IV 200 mls/hr ASDIR BOLA Administration Ceftriaxone Sodium 1 gm/ 50 mls @ 100 mls/hr 02/14/20 10:00 02/14/20 11:05 Dextrose IVPB 100 mls/hr DAILY BOLA Administration Metronidazole 500 mg in 100 mls @ 100 mls/hr 02/14/20 10:00 02/14/20 12:02 Flagyl 500mg Premixed Ivpb - IVPB 100 mls/hr Q8H-IV BOLA Administration Insulin Aspart 1 vial 02/13/20 07:43 02/14/20 12:03 Novolog Vial Sliding Scale - SQ Not Given ACHS BOLA Protocol Morphine Sulfate 2 mg 02/13/20 11:20 02/14/20 04:59 Morphine Sulfate IVPUSH 2 mg Q6H PRN Administration PAIN LEVEL 6-10 Pantoprazole Sodium 40 mg 02/14/20 10:00 02/14/20 11:26 Protonix Iv IVPUSH 40 mg DAILY BOLA Administration Prochlorperazine Edisylate 10 mg 02/13/20 06:37 02/14/20 04:59 Compazine Injection - IVPB 10 mg Q4H PRN Administration NAUSEA AND/OR VOMITING ASSESSMENT/PLAN: Patient is a 60 yo F PMH asthma, 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 #Acute Pancreatitis/Acute cholecystitis -likely 2/2 to gallbladder stones -CT A/P: acute pancreatitis without evidence of pseudocyst. Acute cholecystitis. Dilated CBD and dilated pancreatic duct -RUQ US: cholelithiasis. Plus sonographic evidence of acute cholecystitis. -lipase in 17,000 on admission, now improved to 1700 -IVF/ NPO -Continue Flagyl abd Ceftriaxone -MRI/MRCP pending -GI (Dr. Hinojosa) consulted. Recs appreciated. -Surgery (Dr. Figueroa) consulted. Recs appreciated -once w/u is complete and pancreatitis has clinically resolved, will nee lap jarod possible open. #FEN -IV D5/NS @150cc/hr -HypoK, repleted, routine bmp monitoring -NPO #Prophylaxis -SCDs, early ambulation #Disposition -full code -med surg Visit type - Emergency Visit Emergency Visit: Yes ED Registration Date: 02/13/20 Care time: The patient presented to the Emergency Department on the above date and was hospitalized for further evaluation of their emergent condition. - New Patient This patient is new to me today: Yes Date on this admission: 02/14/20 - Critical Care Critical Care patient: No ATTENDING PHYSICIAN STATEMENT I saw and evaluated the patient. I reviewed the resident's note and discussed the case with the resident. I agree with the resident's findings and plan as documented. SUBJECTIVE: OBJECTIVE: ASSESSMENT AND PLAN:
--- NOTE | 2020-02-14 15:51 | CON.GI ---
Consult Consult Specialty:: GI Referred by:: Hospitalist Service Reason for Consultation:: Abdominal pain - History of Present Illness Chief Complaint: Abdominal pain History of Present Illness: 60F admitted for evaluation of abdominal pain. She was awoken with upper abdominal pain, nausea early Friday morning. The evening prior she had been eating meats at a BBQ. Also with similar episodes of pain, less intense, shorter in duration, over the last three months. Abdominal US revealed gallstones, thickened GB wall, 7mm CBD, prominent PD and Gale's sign was elicited. CT scan revealed acute pancreatitis changes without pseudocyst and both dilated CBD and PD. Has never had EGD/Colonoscopy in the past. - History Source History Provided By: Patient, Medical Record - Past Medical History [employer]: Yes: TIA ...: No - Past Surgical History Past Surgical History: Yes: (x2) - Alcohol/Substance Use Hx Alcohol Use: No History of Substance Use: reports: None - Smoking History Smoking history: Never smoked Have you smoked in the past 12 months: No - Social History Usual Living Arrangement: With Child Place of : Other ([facility]) Came to [place]year[place] 2009 History of Recent Travel: No Home Medications - Allergies Allergies/Adverse Reactions: Allergies Allergy/AdvReac Type Severity Reaction Status Date / Time No Known Allergies Allergy Verified 02/13/20 02:13 - Home Medications Home Medications: Ambulatory Orders Aspirin [Adult Aspirin Regimen] 81 mg PO PRN PRN 02/13/20 Family Medical History Other Family History: Mother: healthy. Father: healthy. 5 healthy siblings. 1 daughter, 1 sister: healthy. No family history of colorectal cancer or other GI malignancy Review of Systems - Review of Systems Constitutional: denies: Chills Cardiovascular: denies: Chest Pain Respiratory: reports: SOB. denies: Cough Gastrointestinal: reports: Abdominal Pain, Nausea. denies: Constipation, Rectal Bleeding, Vomiting Physical Exam-GI Vital Signs: Vital Signs Temperature 98.9 F 02/14/20 14:30 Pulse Rate 67 02/14/20 14:30 Respiratory Rate 02/14/20 14:30 Blood Pressure 126/60 02/14/20 14:30 O2 Sat by Pulse Oximetry (%) 97 02/14/20 08:44 Constitutional: Yes: Calm Eyes: No: Sclera Icterus Cardiovascular: Yes: Regular Rate and Rhythm Respiratory: Yes: CTA Bilaterally Gastrointestinal Inspection: No: Distention ...Auscultate: Yes: Normoactive Bowel Sounds ...Palpate: Yes: Soft, Tenderness (Mild mid abdomen. Negative gale's). No: Guarding, Hepatomegaly, Splenomegaly, Tenderness, Rebound ...Percussion: No: Tympanitic Edema: No (No LE edema) Neurological: Yes: Alert Labs: CBC, BMP 02/14/20 06:40 02/14/20 06:40 INR, PTT INR 1.05 (0.83-1.09) 02/14/20 06:40 Imaging - Results Cat Scan: Report Reviewed, Image Reviewed Ultrasound: Report Reviewed Problem List - Problems (1) Acute gallstone pancreatitis Assessment/Plan: Acute interstitial pancreatitis Also with question of acute cholecystitis vs. secondary inflammatory changes from pancreatitis Dilated biliary tract and PD. Passed / retained CBD stone needs to be considered as well Advise: NPO except meds IV hydration: Changed to Normal Saline @ 150cc/hr Monitor LFTs Agree with MRI/MRCP to further evaluate pancreatic parenchyma as well as biliary tract. MRCP results along with liver chemistries will help determine if ERCP is warranted. Discussed potential risks of the procedure with patient and her daughter like but not limited to bleeding, perforation requiring surgery to repair, infection, sedation medication effects, pancreatitis, all of which could be potentially life threatening. They were in agreement with the procedure if it was felt to be medeically necessary Code(s): K85.10 - BILIARY ACUTE PANCREATITIS WITHOUT NECROSIS OR INFECTION
[2020-02-14] MEDS ORDERED: SODIUM CHLORIDE 1,000 ML IV SCH (16:00)
--- NOTE | 2020-02-14 16:18 | PN ---
Teaching Attending Note Name of Resident: Jada Velasquez ATTENDING PHYSICIAN STATEMENT I saw and evaluated the patient. I reviewed the resident's note and discussed the case with the resident. I agree with the resident's findings and plan as documented. SUBJECTIVE: Patient seen and examined at bedside, admitted for gallstone pancreatitis, clinically improving, Lipase markedly trending down, awaiting MRCP for need for possible ERCP. NPO on IVF, VSS. OBJECTIVE: GENERAL: The patient is awake, alert, and fully oriented, in no acute distress. HEENT NC/AT, EOMI, neck supple, dry MM LUNGS: CTAB HEART: Regular rate and rhythm, S1, S2 without murmur, rub or gallop. ABDOMEN: Soft, mild epigastric tenderness w/o rebound, nondistended, normoactive bowel sounds, no guarding, no rebound, no hepatosplenomegaly, no masses. EXTREMITIES: 2+ pulses, warm, well-perfused, no edema. NEUROLOGICAL: Cranial nerves II through XII grossly intact. Normal speech, gait not observed. PSYCH: Normal mood, normal affect. SKIN: Warm, dry, normal turgor, no rashes or lesions noted Vital Signs - 24 hr 02/13/20 02/13/20 02/14/20 17:00 22:24 04:07 Temperature 98.0 F 99.2 F 98.5 F Pulse Rate Pulse Rate [ 72 65 Apical] Pulse Rate [ 69 Left Radial] Respiratory 18 20 Rate Blood Pressure Blood Pressure 125/67 134/64 121/48 L [Left Arm] O2 Sat by Pulse 100 99 98 Oximetry (%) 02/14/20 02/14/20 02/14/20 05:58 06:43 08:35 Temperature 97.9 F 98.6 F Pulse Rate 71 Pulse Rate [ Apical] Pulse Rate [ 62 Left Radial] Respiratory 19 20 Rate Blood Pressure 114/53 L Blood Pressure 105/47 L [Left Arm] O2 Sat by Pulse 98 98 97 Oximetry (%) 02/14/20 02/14/20 08:44 14:30 Temperature 98.9 F Pulse Rate 67 Pulse Rate [ Apical] Pulse Rate [ Left Radial] Respiratory 20 Rate Blood Pressure 126/60 Blood Pressure [Left Arm] O2 Sat by Pulse 97 Oximetry (%) Laboratory Results - last 24 hr 02/14/20 02/14/20 02/14/20 06:40 06:40 06:40 WBC 5.9 RBC 3.70 Hgb 11.1 Hct 33.7 MCV 91.1 MCH 30.0 MCHC 32.9 RDW 13.2 Plt Count 221 MPV 9.3 Absolute Neuts (auto) 3.6 Neutrophils % 59.8 D Lymphocytes % 30.0 D Monocytes % 7.8 D Eosinophils % 1.8 D Basophils % 0.6 Nucleated RBC % 0 PT with INR 12.40 INR 1.05 Sodium 141 Potassium 3.4 L Chloride 106 Carbon Dioxide 30 Anion Gap 5 L BUN 8.7 Creatinine 0.7 Est GFR (CKD-EPI)AfAm 109.15 Est GFR (CKD-EPI)NonAf 94.17 POC Glucometer Random Glucose 89 Calcium 8.5 Total Bilirubin 1.2 H AST 73 H ALT 141 H Alkaline Phosphatase 78 Total Protein 6.0 L Albumin 3.1 L Lipase 1728 H 02/14/20 11:52 WBC RBC Hgb Hct MCV MCH MCHC RDW Plt Count MPV Absolute Neuts (auto) Neutrophils % Lymphocytes % Monocytes % Eosinophils % Basophils % Nucleated RBC % PT with INR INR Sodium Potassium Chloride Carbon Dioxide Anion Gap BUN Creatinine Est GFR (CKD-EPI)AfAm Est GFR (CKD-EPI)NonAf POC Glucometer 83 Random Glucose Calcium Total Bilirubin AST ALT Alkaline Phosphatase Total Protein Albumin Lipase Home Medications Medication Instructions Recorded Aspirin [Adult Aspirin Regimen] 81 mg PO PRN PRN 02/13/20 Current Medications Generic Name Dose Route Start Last Admin Trade Name Freq PRN Reason Stop Dose Admin Acetaminophen 1,000 mg 02/14/20 08:54 02/14/20 11:05 Ofirmev Injection - IVPB 02/15/20 08:54 1,000 mg Q6H PRN Administration PAIN LEVEL 6-10 Albuterol Sulfate 2 puff 02/14/20 14:48 Ventolin Hfa Inhaler - IH Q4H PRN SHORT OF BREATH/WHEEZING Ceftriaxone Sodium 1 gm/ 50 mls @ 100 mls/hr 02/14/20 10:00 02/14/20 11:05 Dextrose IVPB 100 mls/hr DAILY OBLA Administration Metronidazole 500 mg in 100 mls @ 100 mls/hr 02/14/20 10:00 02/14/20 12:02 Flagyl 500mg Premixed Ivpb - IVPB 100 mls/hr Q8H-IV BOLA Administration Sodium Chloride 1,000 mls @ 150 mls/hr 02/14/20 16:00 Normal Saline - IV ASDIR BOLA Insulin Aspart 1 vial 02/13/20 07:43 02/14/20 12:03 Novolog Vial Sliding Scale - SQ Not Given ACHS BOLA Protocol Morphine Sulfate 2 mg 02/13/20 11:20 02/14/20 04:59 Morphine Sulfate IVPUSH 2 mg Q6H PRN Administration PAIN LEVEL 6-10 Prochlorperazine Edisylate 10 mg 02/13/20 06:37 02/14/20 04:59 Compazine Injection - IVPB 10 mg Q4H PRN Administration NAUSEA AND/OR VOMITING ASSESSMENT AND PLAN: 60 F Gallstone pancreatitis h/o CVA's w/o residual deficitis HLD Plan: NPO, IVF, awaiting MRCP C+ Clinically improving, on empiric abx for biliary tract w/ Ceftriaxone/Flagyl Trend LFTs, if cont. to trend up get hepatitis panel and DC Ceftriaxone Surgery following GI following DVT ppx: Ambulation/SCD
[2020-02-14] MEDS: DEXTROSE 5%-NORMAL SALINE 1,000 ML IV SCH (18:30)
[2020-02-15] MEDS: DEXTROSE 5%-NORMAL SALINE 1,000 ML IV SCH ×3 (01:27→21:15)
[2020-02-15] MEDS: INSULIN SLIDING SCALE (NOVOLOG) 1 VIAL SQ SCH ×4 (06:08→21:19)
[2020-02-15 07:51] LABS: BASO % 0.9 % (0-2.0); EOS % 3.7 % (0-4.5); HEMATOCRIT 33.2 % (32.4-45.2); LYMPH % 37.4 % (8-40); MCH 30.1 pg (25.7-33.7); MCHC 33.1 g/dl (32.0-36.0); MEAN PLT VOLUME 9.4 fl (7.5-11.1); MONO % 9.3 % (3.8-10.2); NEUT % 48.7 % (42.8-82.8); PLATELET COUNT 219 K/MM3 (134-434); RBC 3.64 M/mm3 (3.60-5.2); RDW 13.1 % (11.6-15.6); WHITE BLOOD COUNT 4.9 K/mm3 (4.0-10.0)
[2020-02-15 08:04] LABS: INR 1.03 (0.83-1.09); PROTHROMBIN TIME (PATIENT) 12.2 SEC (9.7-13.0)
[2020-02-15 08:06] LABS: ACTIVATED PTT 27.5 SECONDS (25.2-36.5)
[2020-02-15 08:32] LABS: ALBUMIN 2.9 g/dl (3.4-5.0); BILIRUBIN,TOTAL 0.7 mg/dL (0.2-1); BLOOD UREA NITROGEN 6.9 mg/dL (7-18); CALCIUM 8.3 mg/dL (8.5-10.1); CREATININE 0.7 mg/dL (0.55-1.3); MAGNESIUM 2.1 mg/dL (1.8-2.4); POTASSIUM 3.9 mmol/L (3.5-5.1)
[2020-02-15] MEDS: CEFTRIAXONE 1 GM in DEXTROSE 5%-WATER - 50 ML IVPB SCH (09:10)
--- NOTE | 2020-02-15 09:31 | PN ---
Progress Note (short form) - Note Progress Note: GENERAL SURGERY 60 yo female admitted with gallstone pancreatitis. GI/DiGiorno following. Remains NPO. Last Vital Signs Temp Pulse Resp BP Pulse Ox 98.3 F 64 20 122/58 L 99 02/15/20 05:36 02/15/20 05:36 02/15/20 05:36 02/15/20 05:36 02/14/20 22:00 CBC, BMP 02/15/20 06:58 02/15/20 06:58 Hepatic Panel Total Bilirubin 0.7 mg/dL (0.2-1) 02/15/20 06:58 AST 35 U/L (15-37) 02/15/20 06:58 ALT 100 U/L (13-61) H 02/15/20 06:58 Alkaline Phosphatase 74 U/L (45-117) 02/15/20 06:58 Albumin 2.9 g/dl (3.4-5.0) L 02/15/20 06:58 INR, PTT INR 1.03 (0.83-1.09) 02/15/20 06:58 Serology Test 02/13/20 05:20 COVID-19 (MARTINEZ) Not detected Trend 02/13/20 02/14/20 02:13 06:40 Lipase 24165 1728 GEN: alert. nad ABD: Soft, mild epigastric ttp. no guarding/rebound A/P: 60 yo female admitted w/ acute GS Pancreatitis. -cont NPO except meds - iv fluid hydration - GI following: MRCP - cont to trend Lipase - pain management prn - plan for Lap jarod possible open once pancreatitis resolves - Her current Covid (-) on 02/13/20. If if surgery goes before 02/16 she is ok, if goes after 02/16 she will need a repeat Covid test (only good for 5 days) Above plan discussed with Dr. Figueroa and agrees. <Haris Reddy P - Last Filed: 02/15/20 09:38> - Note Progress Note: Attending Surgeon: I personally saw and examined the patient. My examination reveals a patient with cholecystitis/cholleithiasis. I discussed the case with the surgical PA and agree with their findings and plan of care with any exceptions as noted. ~ Adam Figueroa MD, FACS <Adam Figueroa - Last Filed: 02/17/20 10:28>
[2020-02-15] MEDS ORDERED: ACETAMINOPHEN 1000 MG/100 ML VIAL (NON FORMULARY) IVPB PRN (12:58)
--- NOTE | 2020-02-15 13:27 | PN ---
Progress Note (short form) - Note Progress Note: MRCP / MRI reviewed. Normal PD, mildly dilated CBD, no obvious filling defect, distal duct not visualized. LFTs continue to normalize. D/W biliary endoscopist Dr. Ortiz. Deferring ERCP at this time. Proceed with cholecystectomy, timing per surgery. Problem List - Problems (1) Acute gallstone pancreatitis Code(s): K85.10 - BILIARY ACUTE PANCREATITIS WITHOUT NECROSIS OR INFECTION
--- NOTE | 2020-02-15 13:58 | PN ---
Teaching Attending Note Name of Resident: Jada Velasquez ATTENDING PHYSICIAN STATEMENT I saw and evaluated the patient. I reviewed the resident's note and discussed the case with the resident. I agree with the resident's findings and plan as documented. SUBJECTIVE: OBJECTIVE: Last Vital Signs Temp Pulse Resp BP Pulse Ox 99.5 F 67 20 135/72 99 02/15/20 13:53 02/15/20 13:53 02/15/20 13:53 02/15/20 13:53 02/15/20 13:53 GENERAL: The patient is awake, alert, and fully oriented, in no acute distress. HEAD: Normal with no signs of trauma. EYES: PERRL, extraocular movements intact, sclera anicteric, conjunctiva clear. No ptosis. ENT: Ears normal, nares patent, oropharynx clear without exudates, moist mucous membranes. NECK: Trachea midline, full range of motion, supple. LUNGS: Breath sounds equal, clear to auscultation bilaterally, no wheezes, no crackles, no accessory muscle use. HEART: Regular rate and rhythm, S1, S2 without murmur, rub or gallop. ABDOMEN: Soft, epigastric tenderness w/o rebound, nondistended, normoactive bowel sounds, no guarding, no rebound, no hepatosplenomegaly, no masses. EXTREMITIES: 2+ pulses, warm, well-perfused, no edema. NEUROLOGICAL: Cranial nerves II through XII grossly intact. Normal speech, gait not observed. PSYCH: Normal mood, normal affect. SKIN: Warm, dry, normal turgor, no rashes or lesions noted CBCD WBC 4.9 K/mm3 (4.0-10.0) 02/15/20 06:58 RBC 3.64 M/mm3 (3.60-5.2) 02/15/20 06:58 Hgb 11.0 GM/dL (10.7-15.3) 02/15/20 06:58 Hct 33.2 % (32.4-45.2) 02/15/20 06:58 MCV 91.0 fl (80-96) 02/15/20 06:58 MCHC 33.1 g/dl (32.0-36.0) 02/15/20 06:58 RDW 13.1 % (11.6-15.6) 02/15/20 06:58 Plt Count 219 K/MM3 (134-434) 02/15/20 06:58 MPV 9.4 fl (7.5-11.1) 02/15/20 06:58 CMP Sodium 143 mmol/L (136-145) 02/15/20 06:58 Potassium 3.9 mmol/L (3.5-5.1) 02/15/20 06:58 Chloride 110 mmol/L (98-107) H 02/15/20 06:58 Carbon Dioxide 29 mmol/L (21-32) 02/15/20 06:58 Anion Gap 4 MMOL/L (8-16) L 02/15/20 06:58 BUN 6.9 mg/dL (7-18) L 02/15/20 06:58 Creatinine 0.7 mg/dL (0.55-1.3) 02/15/20 06:58 Calcium 8.3 mg/dL (8.5-10.1) L 02/15/20 06:58 Total Bilirubin 0.7 mg/dL (0.2-1) 02/15/20 06:58 AST 35 U/L (15-37) 02/15/20 06:58 ALT 100 U/L (13-61) H 02/15/20 06:58 Alkaline Phosphatase 74 U/L (45-117) 02/15/20 06:58 Total Protein 6.0 g/dl (6.4-8.2) L 02/15/20 06:58 Albumin 2.9 g/dl (3.4-5.0) L 02/15/20 06:58 ASSESSMENT AND PLAN: 60 yo F PMH asthma, TIAs presenting with epigastric pain radiating to the back with nausea and vomiting for several hours # acute pancreatitis caused by cholelithasis and cholecystitis, planned for lap jarod keep npo, IV fluids, mrcp done, no evidence of necrosis, minimal pancreatic edema, cholelithiasis trend LFT, replace electrolytes as needed GI note appreciated, surgeon consult appreciated. COVID -ve
--- NOTE | 2020-02-15 15:46 | PN ---
Physical Exam: SUBJECTIVE: Patient seen and examined. No acute events overnight. Continues to reports improvement of abdominal pain. OBJECTIVE: Vital Signs Temperature 99.5 F 02/15/20 13:53 Pulse Rate 67 02/15/20 13:53 Respiratory Rate 20 02/15/20 13:53 Blood Pressure 135/72 02/15/20 13:53 O2 Sat by Pulse Oximetry (%) 99 02/15/20 13:53 GENERAL: The patient is awake, alert, and fully oriented, in no acute distress. HEAD: Normal with no signs of trauma. ENT: moist mucous membranes. NECK: full range of motion, supple. LUNGS: Breath sounds equal, clear to auscultation bilaterally HEART: Regular rate and rhythm, S1, S2 without murmur, rub or gallop. ABDOMEN: Soft, mild epigastric tenderness on deep palpation, nondistended, normoactive bowel sounds EXTREMITIES: 2+ pulses, warm, well-perfused, no edema. NEUROLOGICAL: Cranial nerves II through XII grossly intact. Normal speech PSYCH: Normal mood, normal affect. SKIN: Warm, dry, normal turgor Laboratory Results - last 24 hr 02/13/20 02/14/20 02/14/20 05:20 18:11 20:26 WBC RBC Hgb Hct MCV MCH MCHC RDW Plt Count MPV Absolute Neuts (auto) Neutrophils % Lymphocytes % Monocytes % Eosinophils % Basophils % Nucleated RBC % PT with INR INR PTT (Actin FS) Sodium Potassium Chloride Carbon Dioxide Anion Gap BUN Creatinine Est GFR (CKD-EPI)AfAm Est GFR (CKD-EPI)NonAf POC Glucometer 67 89 Random Glucose Calcium Phosphorus Magnesium Total Bilirubin AST ALT Alkaline Phosphatase Total Protein Albumin COVID-19 (MARTINEZ) Not detected 02/14/20 02/15/20 02/15/20 20:58 06:05 06:58 WBC 4.9 RBC 3.64 Hgb 11.0 Hct 33.2 MCV 91.0 MCH 30.1 MCHC 33.1 RDW 13.1 Plt Count 219 MPV 9.4 Absolute Neuts (auto) 2.4 Neutrophils % 48.7 Lymphocytes % 37.4 D Monocytes % 9.3 Eosinophils % 3.7 D Basophils % 0.9 Nucleated RBC % 0 PT with INR INR PTT (Actin FS) Sodium Potassium Chloride Carbon Dioxide Anion Gap BUN Creatinine Est GFR (CKD-EPI)AfAm Est GFR (CKD-EPI)NonAf POC Glucometer 111 105 Random Glucose Calcium Phosphorus Magnesium Total Bilirubin AST ALT Alkaline Phosphatase Total Protein Albumin COVID-19 (MARTINEZ) 02/15/20 02/15/20 02/15/20 06:58 06:58 10:48 WBC RBC Hgb Hct MCV MCH MCHC RDW Plt Count MPV Absolute Neuts (auto) Neutrophils % Lymphocytes % Monocytes % Eosinophils % Basophils % Nucleated RBC % PT with INR 12.20 INR 1.03 PTT (Actin FS) 27.5 Sodium 143 Potassium 3.9 Chloride 110 H Carbon Dioxide 29 Anion Gap 4 L BUN 6.9 L Creatinine 0.7 Est GFR (CKD-EPI)AfAm 109.15 Est GFR (CKD-EPI)NonAf 94.17 POC Glucometer 102 Random Glucose 117 H Calcium 8.3 L Phosphorus 3.0 Magnesium 2.1 Total Bilirubin 0.7 AST 35 ALT 100 H Alkaline Phosphatase 74 Total Protein 6.0 L Albumin 2.9 L COVID-19 (MARTINEZ) Active Medications Generic Name Dose Route Start Last Admin Trade Name Freq PRN Reason Stop Dose Admin Acetaminophen 1,000 mg 02/15/20 12:58 02/15/20 13:32 Ofirmev Injection - IVPB 02/16/20 12:58 1,000 mg Q6H PRN Administration PAIN LEVEL 6-10 Albuterol Sulfate 2 puff 02/14/20 14:48 Ventolin Hfa Inhaler - IH Q4H PRN SHORT OF BREATH/WHEEZING Ceftriaxone Sodium 1 gm/ 50 mls @ 100 mls/hr 02/14/20 10:00 02/15/20 09:10 Dextrose IVPB 100 mls/hr DAILY BOLA Administration Metronidazole 500 mg in 100 mls @ 100 mls/hr 02/14/20 10:00 02/15/20 10:36 Flagyl 500mg Premixed Ivpb - IVPB 100 mls/hr Q8H-IV BOLA Administration Dextrose/Sodium Chloride 1,000 mls @ 150 mls/hr 02/14/20 18:30 02/15/20 12:51 D5-Ns - IV 150 mls/hr ASDIR BOLA Administration Insulin Aspart 1 vial 02/13/20 07:43 02/15/20 10:49 Novolog Vial Sliding Scale - SQ Not Given ACHS BOLA Protocol Morphine Sulfate 2 mg 02/13/20 11:20 02/14/20 04:59 Morphine Sulfate IVPUSH 2 mg Q6H PRN Administration PAIN LEVEL 6-10 Prochlorperazine Edisylate 10 mg 02/13/20 06:37 02/14/20 04:59 Compazine Injection - IVPB 10 mg Q4H PRN Administration NAUSEA AND/OR VOMITING ASSESSMENT/PLAN: Patient is a 60 yo F PMH asthma, 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 #Acute Pancreatitis/Acute cholecystitis -likely 2/2 to gallbladder stones -CT A/P: acute pancreatitis without evidence of pseudocyst. Acute cholecystitis. Dilated CBD and dilated pancreatic duct -RUQ US: cholelithiasis. Plus sonographic evidence of acute cholecystitis. -lipase in 17,000 on admission, now improved to 1700 -IVF/ NPO -Continue Flagyl abd Ceftriaxone -MRI/MRCP : Normal PD, mildly dilated CBD, no obvious filling defect, distal duct not visualized. -LFTs continue to normalize. -As per Dr. Ortiz, biliary endoscopist, deferring ERCP at this time. Can proceed with cholecystectomy. -GI (Dr. Hinojosa) consulted. Recs appreciated. -Surgery (Dr. Figueroa) consulted. Recs appreciated -plan for Lap jarod possible open once pancreatitis resolves -current Covid (-) on 02/13/20. If surgery goes before 02/16 she is ok, if goes after 02/16 she will need a repeat Covid test #FEN -IV D5/NS @150cc/hr -routine bmp monitoring -NPO #Prophylaxis -SCDs, early ambulation #Disposition -full code -med surg Visit type - Emergency Visit Emergency Visit: Yes ED Registration Date: 02/13/20 Care time: The patient presented to the Emergency Department on the above date and was hospitalized for further evaluation of their emergent condition. - New Patient This patient is new to me today: No - Critical Care Critical Care patient: No ATTENDING PHYSICIAN STATEMENT I saw and evaluated the patient. I reviewed the resident's note and discussed the case with the resident. I agree with the resident's findings and plan as documented. SUBJECTIVE: OBJECTIVE: ASSESSMENT AND PLAN:
[2020-02-16] MEDS: DEXTROSE 5%-NORMAL SALINE 1,000 ML IV SCH ×3 (01:14→19:11)
[2020-02-16] MEDS: INSULIN SLIDING SCALE (NOVOLOG) 1 VIAL SQ SCH ×4 (06:11→21:17)
[2020-02-16 08:20] LABS: BASO % 1.3 % (0-2.0); EOS % 3.8 % (0-4.5); HEMATOCRIT 32.3 % (32.4-45.2); HEMOGLOBIN 10.8 GM/dL (10.7-15.3); LYMPH % 43.4 % (8-40); MCH 30.2 pg (25.7-33.7); MCHC 33.5 g/dl (32.0-36.0); MEAN CELL VOLUME 90.1 fl (80-96); MEAN PLT VOLUME 9.2 fl (7.5-11.1); MONO % 7.9 % (3.8-10.2); NEUT % 43.6 % (42.8-82.8); PLATELET COUNT 223 K/MM3 (134-434); RBC 3.59 M/mm3 (3.60-5.2); RDW 12.9 % (11.6-15.6); WHITE BLOOD COUNT 4.7 K/mm3 (4.0-10.0)
[2020-02-16 09:01] LABS: ALBUMIN 3.1 g/dl (3.4-5.0); BILIRUBIN,TOTAL 0.7 mg/dL (0.2-1); BLOOD UREA NITROGEN 4.9 mg/dL (7-18); CALCIUM 8.5 mg/dL (8.5-10.1); CREATININE 0.5 mg/dL (0.55-1.3); MAGNESIUM 2.1 mg/dL (1.8-2.4); PHOSPHOROUS 3.4 mg/dL (2.5-4.9); POTASSIUM 3.6 mmol/L (3.5-5.1); TOT PROT 6.1 g/dl (6.4-8.2)
[2020-02-16] MEDS: CEFTRIAXONE 1 GM in DEXTROSE 5%-WATER - 50 ML IVPB SCH (09:28)
--- NOTE | 2020-02-16 11:54 | PN ---
Teaching Attending Note Name of Resident: Jada Velasquez ATTENDING PHYSICIAN STATEMENT I saw and evaluated the patient. I reviewed the resident's note and discussed the case with the resident. I agree with the resident's findings and plan as documented. SUBJECTIVE: seen and examined at bedside, no pain, awating surgery OBJECTIVE: Last Vital Signs Temp Pulse Resp BP Pulse Ox 99.0 F 66 20 144/72 100 02/16/20 09:12 02/16/20 09:12 02/16/20 09:12 02/16/20 09:12 02/16/20 09:12 GENERAL: Awake, alert, and fully oriented, in no acute distress. HEAD: Normal with no signs of trauma. EYES: Pupils equal, round and reactive to light, sclera anicteric, conjunctiva clear. LUNGS: Breath sounds equal, clear to auscultation bilaterally. No wheezes, and no crackles. No accessory muscle use. HEART: Regular rate and rhythm, normal S1 and S2 ABDOMEN: Soft, nontender, not distended MUSCULOSKELETAL: Normal range of motion at all joints. No bony deformities or tenderness. No CVA tenderness. UPPER EXTREMITIES: 2+ pulses, warm, well-perfused. No cyanosis. No clubbing. No peripheral edema. LOWER EXTREMITIES: 2+ pulses, warm, well-perfused. No calf tenderness. No peripheral edema. NEUROLOGICAL: Cranial nerves II-XII intact. Normal speech. ASSESSMENT AND PLAN: 60 yo F PMH asthma, TIAs presenting with acute pancreatitis # acute pancreatitis caused by cholelithasis and cholecystitis, for lap jarod today RCRI score 1= 1% risk keep npo, IV fluids, trend LFT, replace electrolytes as needed GI note appreciated, surgeon consult appreciated. COVID -ve
--- NOTE | 2020-02-16 12:26 | PN ---
Physical Exam: SUBJECTIVE: Patient seen and examined. No acute events overnight. Plan for OR today. OBJECTIVE: Vital Signs Temperature 99.0 F 02/16/20 09:12 Pulse Rate 66 02/16/20 09:12 Respiratory Rate 20 02/16/20 09:12 Blood Pressure 144/72 02/16/20 09:12 O2 Sat by Pulse Oximetry (%) 100 02/16/20 09:12 GENERAL: The patient is awake, alert, and fully oriented, in no acute distress. HEAD: Normal with no signs of trauma. ENT: moist mucous membranes. NECK: full range of motion, supple. LUNGS: Breath sounds equal, clear to auscultation bilaterally HEART: Regular rate and rhythm, S1, S2 without murmur, rub or gallop. ABDOMEN: Soft, mild epigastric tenderness on deep palpation, nondistended, normoactive bowel sounds EXTREMITIES: 2+ pulses, warm, well-perfused, no edema. NEUROLOGICAL: Cranial nerves II through XII grossly intact. Normal speech PSYCH: Normal mood, normal affect. SKIN: Warm, dry, normal turgor Laboratory Results - last 24 hr 02/14/20 02/15/20 02/15/20 19:57 17:00 21:17 WBC RBC Hgb Hct MCV MCH MCHC RDW Plt Count MPV Absolute Neuts (auto) Neutrophils % Lymphocytes % Monocytes % Eosinophils % Basophils % Nucleated RBC % Sodium Potassium Chloride Carbon Dioxide Anion Gap BUN Creatinine Est GFR (CKD-EPI)AfAm Est GFR (CKD-EPI)NonAf POC Glucometer 115 128 Random Glucose Calcium Phosphorus Magnesium Total Bilirubin AST ALT Alkaline Phosphatase Total Protein Albumin Hep A IgM Ab Confirm Negative Hep Bs Antigen Negative Hep B Core IgM Ab Negative Hepatitis C Ab (EIA) <0.1 02/16/20 02/16/20 02/16/20 06:09 07:57 07:57 WBC 4.7 RBC 3.59 L Hgb 10.8 Hct 32.3 L MCV 90.1 MCH 30.2 MCHC 33.5 RDW 12.9 Plt Count 223 MPV 9.2 Absolute Neuts (auto) 2.0 Neutrophils % 43.6 Lymphocytes % 43.4 H Monocytes % 7.9 Eosinophils % 3.8 Basophils % 1.3 Nucleated RBC % 0 Sodium 143 Potassium 3.6 Chloride 110 H Carbon Dioxide 26 Anion Gap 6 L BUN 4.9 L Creatinine 0.5 L Est GFR (CKD-EPI)AfAm 121.92 Est GFR (CKD-EPI)NonAf 105.20 POC Glucometer 109 Random Glucose 123 H Calcium 8.5 Phosphorus 3.4 Magnesium 2.1 Total Bilirubin 0.7 AST 47 H ALT 93 H Alkaline Phosphatase 70 Total Protein 6.1 L Albumin 3.1 L Hep A IgM Ab Confirm Hep Bs Antigen Hep B Core IgM Ab Hepatitis C Ab (EIA) 02/16/20 11:36 WBC RBC Hgb Hct MCV MCH MCHC RDW Plt Count MPV Absolute Neuts (auto) Neutrophils % Lymphocytes % Monocytes % Eosinophils % Basophils % Nucleated RBC % Sodium Potassium Chloride Carbon Dioxide Anion Gap BUN Creatinine Est GFR (CKD-EPI)AfAm Est GFR (CKD-EPI)NonAf POC Glucometer 104 Random Glucose Calcium Phosphorus Magnesium Total Bilirubin AST ALT Alkaline Phosphatase Total Protein Albumin Hep A IgM Ab Confirm Hep Bs Antigen Hep B Core IgM Ab Hepatitis C Ab (EIA) Active Medications Generic Name Dose Route Start Last Admin Trade Name Freq PRN Reason Stop Dose Admin Acetaminophen 1,000 mg 02/15/20 12:58 02/15/20 13:32 Ofirmev Injection - IVPB 02/16/20 12:58 1,000 mg Q6H PRN Administration PAIN LEVEL 6-10 Albuterol Sulfate 2 puff 02/14/20 14:48 Ventolin Hfa Inhaler - IH Q4H PRN SHORT OF BREATH/WHEEZING Ceftriaxone Sodium 1 gm/ 50 mls @ 100 mls/hr 02/14/20 10:00 02/16/20 09:28 Dextrose IVPB 100 mls/hr DAILY BOLA Administration Metronidazole 500 mg in 100 mls @ 100 mls/hr 02/14/20 10:00 02/16/20 10:58 Flagyl 500mg Premixed Ivpb - IVPB 100 mls/hr Q8H-IV BOLA Administration Dextrose/Sodium Chloride 1,000 mls @ 150 mls/hr 02/14/20 18:30 02/16/20 06:11 D5-Ns - IV 150 mls/hr ASDIR BOLA Administration Insulin Aspart 1 vial 02/13/20 07:43 02/16/20 11:37 Novolog Vial Sliding Scale - SQ Not Given ACHS BOLA Protocol Morphine Sulfate 2 mg 02/13/20 11:20 02/14/20 04:59 Morphine Sulfate IVPUSH 2 mg Q6H PRN Administration PAIN LEVEL 6-10 Prochlorperazine Edisylate 10 mg 02/13/20 06:37 02/14/20 04:59 Compazine Injection - IVPB 10 mg Q4H PRN Administration NAUSEA AND/OR VOMITING ASSESSMENT/PLAN: Patient is a 60 yo F PMH asthma, 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 #Acute Pancreatitis/Acute cholecystitis -likely 2/2 to gallbladder stones -CT A/P: acute pancreatitis without evidence of pseudocyst. Acute cholecystitis. Dilated CBD and dilated pancreatic duct -RUQ US: cholelithiasis. Plus sonographic evidence of acute cholecystitis. -lipase in 17,000 on admission, trended down to 1700 -IVF/ NPO -Continue Flagyl and Ceftriaxone -MRI/MRCP : Normal PD, mildly dilated CBD, no obvious filling defect, distal duct not visualized. -LFTs continue to normalize. -As per Dr. Ortiz, biliary endoscopist, deferring ERCP at this time. -GI (Dr. Hinojosa) consulted. Recs appreciated. -Surgery (Dr. Figueroa) consulted. Recs appreciated -plan for Lap jarod possible open today #FEN -IV D5/NS @150cc/hr -routine bmp monitoring -NPO #Prophylaxis -SCDs, early ambulation #Disposition -full code -med surg Visit type - Emergency Visit Emergency Visit: Yes ED Registration Date: 02/13/20 Care time: The patient presented to the Emergency Department on the above date and was hospitalized for further evaluation of their emergent condition. - New Patient This patient is new to me today: No - Critical Care Critical Care patient: No ATTENDING PHYSICIAN STATEMENT I saw and evaluated the patient. I reviewed the resident's note and discussed the case with the resident. I agree with the resident's findings and plan as documented. SUBJECTIVE: OBJECTIVE: ASSESSMENT AND PLAN:
[2020-02-16] MEDS ORDERED: MIDAZOLAM HCL 2 MG/2 ML SINGLE DOSE VIAL ONE (13:16)
[2020-02-16] MEDS ORDERED: fentaNYL CITRATE 250 MCG/5 ML VIAL ONE ×2 (13:17→13:57)
[2020-02-16] MEDS ORDERED: ROCURONIUM BROMIDE 50 MG/5 ML SYRINGE ONE (13:17)
[2020-02-16] MEDS ORDERED: PROPOFOL 20 ML ONE (13:17)
[2020-02-16] MEDS ORDERED: BUPIVACAINE HCL/PF 0.5% (5 MG/ML) 30 ML VIAL IJ ONE (13:39)
[2020-02-16] MEDS ORDERED: GLYCOPYRROLATE 0.2 MG/1 ML VIAL ONE (14:25)
[2020-02-16] MEDS ORDERED: NEOSTIGMINE METHYLSULFATE 0.5 MG/ML - 10 ML MDV ONE (14:25)
[2020-02-16] MEDS ORDERED: ONDANSETRON 4 MG/2 ML VIAL IVPUSH PRN ×2 (14:32→14:59)
[2020-02-16] MEDS ORDERED: oxyCODONE HCL 5 MG TABLET PO PRN ×2 (14:32→14:59)
[2020-02-16] MEDS ORDERED: PROMETHAZINE HCL 25 MG/1 ML VIAL IVPUSH PRN (14:32)
[2020-02-16] MEDS ORDERED: ONDANSETRON 4 MG/2 ML VIAL ONE (14:53)
--- NOTE | 2020-02-16 14:56 | OP ---
Operative Note - Note: Operative Date: 02/16/20 Pre-Operative Diagnosis: acute cholecystitis, cholelithasis Operation: laparoscopic cholecystectomy Post-Operative Diagnosis: Same as Pre-op Surgeon: Adam Figueroa Mobile Device Engineer: Leslie Fung Anesthesiologist/CUSTOM TAILOR: Johnie Torres Anesthesia: General Specimens Removed: gallbladder Estimated Blood Loss (mls): 15 Fluid Volume Replaced (mls): 1,000 (LR) Operative Report Dictated: Yes
[2020-02-16] MEDS ORDERED: MORPHINE SULFATE 2 MG/ML VIAL IVPUSH PRN (14:59)
[2020-02-16] MEDS ORDERED: PROCHLORPERAZINE INJECTION 10 MG/2 ML VIAL IVPB PRN (14:59)
[2020-02-16] MEDS ORDERED: ALBUTEROL SO4 HFA INHALER IH PRN (14:59)
[2020-02-17] MEDS: DEXTROSE 5%-NORMAL SALINE 1,000 ML IV SCH (01:22)
[2020-02-17] MEDS: INSULIN SLIDING SCALE (NOVOLOG) 1 VIAL SQ SCH ×2 (06:39→11:38)
--- NOTE | 2020-02-17 08:34 | PN ---
Progress Note (short form) - Note Progress Note: POD 1, s/p lap jarod Pt seen and examined. Endorses some ruq and incisional tenderness. No issues overnight. Tolerating clears. Has not been oob, voiding in bedpan. No flatus. Denies cp/sob, n/v/d. Vital Signs Temp 98.4 F 02/17/20 05:35 Pulse 72 02/17/20 05:35 Resp 20 02/17/20 05:35 BP 133/73 02/17/20 05:35 Pulse Ox 99 02/17/20 05:35 Intake & Output 02/16/20 02/16/20 02/17/20 11:59 23:59 11:59 Intake Total 1000 1500 1800 Output Total 10 Balance 1000 1490 1800 Intake: IV 900 1500 1800 D5-Ns - 1,000 ml @ 150 900 mls/hr IV ASDIR BOLA Rx#: [id number] D5-Ns - 1,000 ml @ 150 1800 mls/hr IV ASDIR BOLA Rx#: [id number] IVPB 100 Oral 0 Output: Urine 0 Estimated Blood Loss 10 Other: Voiding Method Toilet Bedpan Bedpan # Unmeasured Voids Void 2 2 Bowel Movement No No CBC, BMP 02/16/20 07:57 02/16/20 07:57 Gen: awake, alert, nad Resp: unlabored on RA Abdo: soft, +ttp in ruq, and at incision sites, bandaids c/d/i, no erythema or drainage, hypoactive bowel sounds. A/P: 60 y/o F PMHx asthma, CVA in 2003 w/ right sided residual deficit s/p physical therapy/rehab recovery, multiple TIAs- most recent in 2009, a/w epigastric pain radiating to the back with nausea and vomiting found to have acute cholecystitis/cholelithasis now POD 1, s/p laparoscopic cholecystectomy afebrile, vss pain controlled, tolerating diet labs pending for this am -pain control -Continue to advance diet as tolerated -oob ad [place] -if labs are stable, pain is controlled and pt is tolerating diet may be d/c from gen surg stabdpoint later today -pt should f/u with Dr Figueroa in 1 week d/w attending Dr Figueroa <Ankush Candelario - Last Filed: 02/17/20 08:39> - Note Progress Note: Attending Surgeon: I personally saw and examined the patient. My examination reveals a patient with POD#1 s/p lap jarod. I discussed the case with the surgical PA and agree with their findings and plan of care with any exceptions as noted. ~ Adam Figueroa MD, FACS <Adam Figueroa - Last Filed: 02/17/20 10:27>
[2020-02-17 08:43] LABS: BASO % 0.6 % (0-2.0); EOS % 0.1 % (0-4.5); HEMATOCRIT 33.6 % (32.4-45.2); HEMOGLOBIN 11.1 GM/dL (10.7-15.3); LYMPH % 25.2 % (8-40); MCH 30.5 pg (25.7-33.7); MEAN CELL VOLUME 92.5 fl (80-96); MEAN PLT VOLUME 9.9 fl (7.5-11.1); MONO % 8.2 % (3.8-10.2); NEUT % 65.9 % (42.8-82.8); PLATELET COUNT 219 K/MM3 (134-434); RBC 3.63 M/mm3 (3.60-5.2); RDW 12.9 % (11.6-15.6); WHITE BLOOD COUNT 7.8 K/mm3 (4.0-10.0)
[2020-02-17 09:18] LABS: ALBUMIN 2.9 g/dl (3.4-5.0); BILIRUBIN,TOTAL 0.6 mg/dL (0.2-1); BLOOD UREA NITROGEN 3.7 mg/dL (7-18); CALCIUM 8.1 mg/dL (8.5-10.1); CREATININE 0.7 mg/dL (0.55-1.3); MAGNESIUM 2.1 mg/dL (1.8-2.4); POTASSIUM 3.5 mmol/L (3.5-5.1); TOT PROT 5.9 g/dl (6.4-8.2)
[2020-02-17 11:15] VITALS: PULSE 65
[2020-02-17] MEDS ORDERED: INSULIN (NOVOLOG) ASPART 100 UNITS/ML 10ML VIAL ONE (11:34)
--- NOTE | 2020-02-17 12:27 | PN ---
Teaching Attending Note Name of Resident: Jada Velasquez ATTENDING PHYSICIAN STATEMENT I saw and evaluated the patient. I reviewed the resident's note and discussed the case with the resident. I agree with the resident's findings and plan as documented. SUBJECTIVE: pt seen and examined at bedside, no complains OBJECTIVE: Last Vital Signs Temp Pulse Resp BP Pulse Ox 99 F 65 18 133/67 100 02/17/20 10:00 02/17/20 10:00 02/17/20 10:00 02/17/20 10:02/17/20 10:00 GENERAL: Awake, alert, and fully oriented, in no acute distress. HEAD: Normal with no signs of trauma. EYES: Pupils equal, round and reactive to light, sclera anicteric, conjunctiva clear. LUNGS: Breath sounds equal, clear to auscultation bilaterally. No wheezes, and no crackles. No accessory muscle use. HEART: Regular rate and rhythm, normal S1 and S2 ABDOMEN: Soft, nontender, not distended MUSCULOSKELETAL: Normal range of motion at all joints. No bony deformities or tenderness. No CVA tenderness. UPPER EXTREMITIES: 2+ pulses, warm, well-perfused. No cyanosis. No clubbing. No peripheral edema. LOWER EXTREMITIES: 2+ pulses, warm, well-perfused. No calf tenderness. No peripheral edema. NEUROLOGICAL: Cranial nerves II-XII intact. Normal speech. CBCD WBC 7.8 K/mm3 (4.0-10.0) 02/17/20 07:51 RBC 3.63 M/mm3 (3.60-5.2) 02/17/20 07:51 Hgb 11.1 GM/dL (10.7-15.3) 02/17/20 07:51 Hct 33.6 % (32.4-45.2) 02/17/20 07:51 MCV 92.5 fl (80-96) 02/17/20 07:51 MCHC 33.0 g/dl (32.0-36.0) 02/17/20 07:51 RDW 12.9 % (11.6-15.6) 02/17/20 07:51 Plt Count 219 K/MM3 (134-434) 02/17/20 07:51 MPV 9.9 fl (7.5-11.1) 02/17/20 07:51 CMP Sodium 143 mmol/L (136-145) 02/17/20 07:51 Potassium 3.5 mmol/L (3.5-5.1) 02/17/20 07:51 Chloride 111 mmol/L (98-107) H 02/17/20 07:51 Carbon Dioxide 23 mmol/L (21-32) 02/17/20 07:51 Anion Gap 9 MMOL/L (8-16) 02/17/20 07:51 BUN 3.7 mg/dL (7-18) L 02/17/20 07:51 Creatinine 0.7 mg/dL (0.55-1.3) 02/17/20 07:51 Calcium 8.1 mg/dL (8.5-10.1) L 02/17/20 07:51 Total Bilirubin 0.6 mg/dL (0.2-1) 02/17/20 07:51 AST 116 U/L (15-37) H 02/17/20 07:51 ALT 127 U/L (13-61) H 02/17/20 07:51 Alkaline Phosphatase 78 U/L (45-117) 02/17/20 07:51 Total Protein 5.9 g/dl (6.4-8.2) L 02/17/20 07:51 Albumin 2.9 g/dl (3.4-5.0) L 02/17/20 07:51 ASSESSMENT AND PLAN: 60 yo F PMH asthma, TIAs presenting with acute pancreatitis # acute pancreatitis resolved s/p lap jarod POD1 advance diet as tolerated discussed with surgeon, pt can be discharged in afternoon if tolerating diet GI note appreciated, surgeon consult appreciated. COVID -ve need to follow up with surgeon in 1 week discharge planning
--- NOTE | 2020-02-17 13:06 | PN.GI ---
GI Progress Note Subjective: Lap Taylor yesterday. No acute events States feeling better - Objective Vital Signs: Vital Signs Temperature 99 F 02/17/20 10:00 Pulse Rate 65 02/17/20 10:00 Respiratory Rate 18 02/17/20 10:00 Blood Pressure 133/67 02/17/20 10:00 O2 Sat by Pulse Oximetry (%) 100 02/17/20 10:00 Constitutional: Calm Eyes: No: Sclera Icterus Cardiovascular: Yes: Regular Rate and Rhythm Respiratory: Yes: CTA Bilaterally Gastrointestinal Inspection: Yes: Other (dressed trochar sites). No: Distention ...Auscultate: Yes: Normoactive Bowel Sounds ...Palpate: Yes: Soft, Tenderness (Tenderness at trochar sites). No: Hepatomegaly ...Percussion: No: Tympanitic Edema: No (No LE edema) Neurological: Yes: Alert Labs: CBC, BMP 02/17/20 07:51 02/17/20 07:51 INR, PTT INR 1.03 (0.83-1.09) 02/15/20 06:58 Hepatic Panel Total Bilirubin 0.6 mg/dL (0.2-1) 02/17/20 07:51 AST 116 U/L (15-37) H 02/17/20 07:51 ALT 127 U/L (13-61) H 02/17/20 07:51 Alkaline Phosphatase 78 U/L (45-117) 02/17/20 07:51 Albumin 2.9 g/dl (3.4-5.0) L 02/17/20 07:51 Problem List - Problems (1) Acute gallstone pancreatitis Assessment/Plan: Clinically improved, POD 1 Lap Taylor Monitor LFTs: ordered for tomorrow Post op care per surgery Code(s): K85.10 - BILIARY ACUTE PANCREATITIS WITHOUT NECROSIS OR INFECTION
[2020-02-17 13:48] VITALS: BP 152/76; TEMP 98.6
--- NOTE | 2020-02-17 18:28 | DS ---
Physical Exam: SUBJECTIVE: Patient seen and examined. Patient reports feeling well and has tolerated regular diet OBJECTIVE: Vital Signs Period Temp Pulse Resp BP Sys/Villanueva Pulse Ox Last 24 Hr 98.4 F-99.2 F 65-78 18-20 122-152/52-76 99-100 PHYSICAL EXAM GENERAL: The patient is awake, alert, and fully oriented, in no acute distress. HEAD: Normal with no signs of trauma. ENT: moist mucous membranes. NECK: full range of motion, supple. LUNGS: Breath sounds equal, clear to auscultation bilaterally HEART: Regular rate and rhythm, S1, S2 without murmur, rub or gallop. ABDOMEN: Soft, mild epigastric tenderness on deep palpation, nondistended, normoactive bowel sounds EXTREMITIES: 2+ pulses, warm, well-perfused, no edema. NEUROLOGICAL: Cranial nerves II through XII grossly intact. Normal speech PSYCH: Normal mood, normal affect. SKIN: Warm, dry, normal turgor LABS Laboratory Results - last 24 hr 02/16/20 02/17/20 02/17/20 21:14 06:06 07:51 WBC 7.8 RBC 3.63 Hgb 11.1 Hct 33.6 MCV 92.5 MCH 30.5 MCHC 33.0 RDW 12.9 Plt Count 219 MPV 9.9 Absolute Neuts (auto) 5.1 Neutrophils % 65.9 D Lymphocytes % 25.2 D Monocytes % 8.2 Eosinophils % 0.1 D Basophils % 0.6 Nucleated RBC % 0 Sodium Potassium Chloride Carbon Dioxide Anion Gap BUN Creatinine Est GFR (CKD-EPI)AfAm Est GFR (CKD-EPI)NonAf POC Glucometer 209 154 Random Glucose Calcium Magnesium Total Bilirubin AST ALT Alkaline Phosphatase Total Protein Albumin 02/17/20 02/17/20 07:51 11:37 WBC RBC Hgb Hct MCV MCH MCHC RDW Plt Count MPV Absolute Neuts (auto) Neutrophils % Lymphocytes % Monocytes % Eosinophils % Basophils % Nucleated RBC % Sodium 143 Potassium 3.5 Chloride 111 H Carbon Dioxide 23 Anion Gap 9 BUN 3.7 L Creatinine 0.7 Est GFR (CKD-EPI)AfAm 109.15 Est GFR (CKD-EPI)NonAf 94.17 POC Glucometer 98 Random Glucose 76 Calcium 8.1 L Magnesium 2.1 Total Bilirubin 0.6 AST 116 H ALT 127 H Alkaline Phosphatase 78 Total Protein 5.9 L Albumin 2.9 L HOSPITAL COURSE: Date of Admission:02/13/20 Date of Discharge: 02/17/20 Patient is a 60 yo F PMH asthma, 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 #Acute Pancreatitis/Acute cholecystitis -likely 2/2 to gallbladder stones -CT A/P: acute pancreatitis without evidence of pseudocyst. Acute cholecystitis. Dilated CBD and dilated pancreatic duct -RUQ US: cholelithiasis. Plus sonographic evidence of acute cholecystitis. -lipase in 17,000 on admission, trended down to 1700 -IVF/ NPO / IV abx -MRI/MRCP : Normal PD, mildly dilated CBD, no obvious filling defect, distal duct not visualized. -LFTs continue to normalize. -As per Dr. Ortiz, biliary endoscopist, deferring ERCP at this time. -GI (Dr. Hinojosa) consulted. Recs appreciated. -Surgery (Dr. Figueroa) consulted. Recs appreciated -Lap cholecystectomy done. 02/15 Patient tolerated procedure well and was subsequently discharged with instructions to follow up with surgery. Minutes to complete discharge: 36 Discharge Summary Problems reviewed: Yes Reason For Visit: DIFFICULTY BREATHING,ABDOMINAL PAIN Condition: Improved - Instructions Diet, Activity, Other Instructions: Your Visit You were admitted to the hospital because you had belly pain. You were found to have an inflammation of your pancreas and gallbladder. You were evaluated by surgery and you had your gallbladder taken out. Medications You may take Tylenol or ibuprofen as needed for pain. Please continue your home medications Follow up Please follow up with your primary care provider in 1 week. Please follow up with the surgeon, Dr. Figueroa, in 1 week. Please call the office to schedule an appointment. A referral has been provided. Additional info Please call 911 or go to the ED if with any worsening fevers, chills ,headache, nausea, vomiting, dizziness, chest pain, shortness of breath, belly pain, or any new concerns noted. Dr. Figueroa Discharge Instructions Dear JOCELINE ARITA, Post Operative Instructions Physical activity Resume your normal everyday activity as tolerated no heavy lifting or exercise until seen by your surgeon. You may walk unlimited amounts of and climb stairs. You may resume driving the car when you feel safe and comfortable behind the wheel. Wound care If you have a bandage, leave it on, and keep dry for 48 - 72 hours. After that time discard the outer bandage. If there are tapes on the skin under the outer bandage, leave them in place. They will peel off in the next 7 to 10 days. Do Not peel them off. You may shower 2 days after surgery. If there are tapes present on the skin, they can get wet. Diet There are no dietary restrictions. Eat healthy, high-fiber foods. Drink 6 to 8 glasses of liquid each day. This will assist in keeping your bowels are regular. Pain management You may take Tylenol or acetaminophen or Ibuprofen (for example, Motrin, Advil etc.) Any pain prescription medication ordered should be taken as prescribed for moderate to severe pain. Call Dr. Figueroa for any of the following: Severe pain not relieved by medication Fever of 101 or higher Excessive bleeding or drainage on dressing Inability to urinate Call the office at [phone] for a post operative appointment in 7 - 10 days. [place] [facility] [place] [facility] [place] [Provider Group] Adam Figueroa MD [Staff Physician] - 1 Week Disposition: HOME - Home Medications Comprehensive Discharge Medication List: Ambulatory Orders Aspirin [Adult Aspirin Regimen] 81 mg PO PRN PRN 02/13/20 Albuterol Sulfate Inhaler - [Ventolin HFA Inhaler -] 2 puff IH Q4H PRN inhaler 02/17/20 This patient is new to me today: No Emergency Visit: Yes ED Registration Date: 02/13/20 Care time: The patient presented to the Emergency Department on the above date and was hospitalized for further evaluation of their emergent condition. Critical Care patient: No - Discharge Referral Referred to [facility] No ATTENDING PHYSICIAN STATEMENT I saw and evaluated the patient. I reviewed the resident's note and discussed the case with the resident. I agree with the resident's findings and plan as documented. SUBJECTIVE: OBJECTIVE: ASSESSMENT AND PLAN:
--- NOTE | 2020-02-17 20:50 | OP ---
DATE OF OPERATION: 02/16/2020 PREOPERATIVE DIAGNOSIS: Acute cholecystitis and cholelithiasis. POSTOPERATIVE DIAGNOSIS: Acute cholecystitis and cholelithiasis. PROCEDURE: Laparoscopic cholecystectomy. SURGEON: Adam Figueroa MD SET MAKING MACHINE OPERATOR: Leslie Fung PA-C ANESTHESIA: General. OPERATIVE FINDINGS: Acute cholecystitis and cholelithiasis. The rest of the findings were unremarkable. DESCRIPTION OF PROCEDURE: The patient was placed on the operating room table in supine position. After the induction of general anesthesia, the patient's abdomen was prepped with ChloraPrep and draped in sterile fashion. Time-out was taken and then pneumoperitoneum established above the umbilicus using a Veress needle. Once 15 mm of intra-abdominal pressure was obtained, a 5-mm port was placed at the umbilicus. Additional lateral 5-mm ports and a subxiphoid 12-mm port were placed and laparoscopy carried out, and the previously noted findings were observed. The gallbladder was placed on cephalad and lateral traction, and dissection was begun at the neck of the gallbladder where the peritoneum was opened medially and laterally using blunt and sharp dissection and electrocautery. Dissection continued in the triangle of Calot where the cystic duct was identified coursing from the neck of the gallbladder distally to the common bile duct. It was dissected proximally and distally for length. Similarly, the artery was similarly identified and dissected. A critical view of safety was taken, and then the cystic duct divided proximally and distally using Endo Maritza after it was clipped twice proximally and distally with large hemoclips. The artery was similarly clipped and divided. Hemostasis was checked for and noted to be good and then the gallbladder was removed from the liver bed in a retrograde fashion using electrocautery. Prior to removal from the edge of the liver, hemostasis was again verified and then the gallbladder removed from the edge of the liver, placed in an EndoCatch, and brought out through the subxiphoid port. Pneumoperitoneum was reestablished, hemostasis verified again, and then the 5-mm lateral and subxiphoid ports were removed under laparoscopic vision without evidence of bleeding from the port sites. The umbilical port was removed and the pneumoperitoneum evacuated. All port sites were infiltrated with 0.5% Marcaine and the skin edges closed with 4-0 Biosyn in a subcuticular and continuous fashion. Steri-Strips and Band-Aid dressings were placed and the procedure terminated at this point and the patient aroused from general anesthesia and transferred to the post anesthesia care unit in stable condition awake and alert. ESTIMATED BLOOD LOSS: 15 mL. REPLACEMENTS: Crystalloid. DRAINS: None. SPECIMENS: Gallbladder and contents to Pathology. I, Adam Figueroa, was physically present in the operating room from the time the patient was placed on the operating room table until she was transferred to the post anesthesia care unit in [place]. MD MIHAELA Maloney/[id number] MTDD
--- NOTE | 2020-02-18 19:57 | PATH ---
Surgical Pathology Report Patient Name: JOCELINE DAVIS [facility]. Rec. #: [id number] /Age/Gender: 1960 (Age: 60) / F Account: [id number] Location: [address] [place] [address]/[facility] Taken: 02/16/2020 Received: 02/17/2020 Reported: 02/18/2020 Physicians: MD ARJUN Padgett Specimen(s) Received GALLBLADDER Clinical History Acute cholecystitis Final Diagnosis GALLBLADDER, LAPAROSCOPIC CHOLECYSTECTOMY: CHRONIC CHOLECYSTITIS, CHOLESTEROLOSIS AND CHOLELITHIASIS. Electronically Signed Crystal Henderson M.D. Gross Description Received in formalin, labeled "gallbladder," is a 7.8 x 3.3 x 3.0 cm. gallbladder with a 0.2 cm. in length portion of cystic duct attached. The outer surface is barnard green and varies from smooth to shaggy. The lumen contains green, tenacious bile as well as multiple yellow, spherical, bosselated choleliths ranging from 0.2-0.5 cm in greatest dimension. The mucosa is dark green with gold cholesterol stippling. The wall of the gallbladder averages 0.1 cm. in thickness. Project Accountant sections are submitted in one cassette. 02/17/2020 [facility]
--- NOTE | 2020-02-24 17:16 | SURG ---
Surgery Licensed Veterinary Technician Note Licensed Veterinary Technician: DEBORAH Sprague Date of Service: 02/16/20 Diagnosis: Acute cholecystitis, cholelithasis Procedure: Laparoscopic cholecystectomy I was present for the entirety of the operative procedure. For further detail, please refer to operative report. Visit type - Case Type Case Type: ED Admission - Emergency Emergency Visit: Yes ED Registration Date: 02/13/20 Care time: The patient presented to the Emergency Department on the above date a nd was hospitalized for further evaluation of their emergent condition. - New patient This patient is new to me today: Yes Date on this admission: 02/24/20
== END 2020-02-17 17:31 | disposition home or self-care (01) | DRG 263 ==
LOC: EDBD → JER 02:10 → JERBED 03:44 → J6WEST-2 02-14 08:06 → J6S 02-16 12:32
PROVIDERS: ADMIT Internal Medicine; ATTEND Student in an Organized Health Care Education/Training Program
PROC: 0FT44ZZ Resection of Gallbladder, Percutaneous Endoscopic Approach (ICD-10-PCS; principal; 2020-02-16 13:00)
DX: K85.10 Biliary acute pancreatitis without necrosis or infection (principal); R00.1 Bradycardia, unspecified; K80.00 Calculus of gallbladder with acute cholecystitis without obstruction; I69.351 Hemiplegia and hemiparesis following cerebral infarction affecting right dominant side
CPT/HCPCS: 36415; 71045-TC-FY; 74160-TC; 74182-TC; 76705-TC; 80053; 80061; 80074; 81003; 82550; 82962; 83036; 83690; 83721; 83735; 84100; 84484; 85025; 85610; 85730; 88304-TC; 93005; 93010; 94760; 97116-GP; 97161-GP; 99285-25; A9579; J0131; Q9967; U0003